=== PATIENT | male | born 1995 | race Caucasian/White ===

== ENCOUNTER → 2017-10-05 | Outpatient (CLI) | payer OTHER ==
[~2017-10-05] MED LIST: CYCL10 PO; IBUP800 PO
[2017-10-05 13:42] LABS: BASOPHILS ABSOLUTE AUTO 0.04 K/mm3 (0.00-0.23); BASOPHILS PERCENT AUTO 1 % (0-2); EOSINOPHILS ABSOLUTE AUTO 0.05 K/mm3 (0.00-0.68); EOSINOPHILS PERCENT AUTO 1 % (0-6); Hematocrit 45.1 % (37.0-53.0); Hemoglobin 16.4 g/dL (13.5-17.5); IMMATURE GRAN ABSOLUTE AUTO 0.04 K/mm3 (0.00-0.10); IMMATURE GRAN PERCENT AUTO 1 % (0-1); LYMPHOCYTES ABSOLUTE AUTO 1.95 K/mm3 (0.84-5.20); LYMPHOCYTES PERCENT AUTO 25 % (21-46); MONOCYTES ABSOLUTE AUTO 0.54 K/mm3 (0.16-1.47); MONOCYTES PERCENT AUTO 7 % (4-13); Mean Corpuscular HGB 33.1 pg (26.0-34.0); Mean Corpuscular HGB Conc 36.4 g/dL (31.5-36.5); Mean Corpuscular Volume 91 fL (80-100); Mean Platelet Volume 8.9 fL (9.1-12.4); NEUTROPHILS ABSOLUTE AUTO 5.18 K/mm3 (1.96-9.15); NEUTROPHILS PERCENT AUTO 67 % (41-73); Platelet Count 209 K/mm3 (150-400); RDW Coefficient Variation 12.7 % (11.7-14.2); RDW Standard Deviation 42.5 fL (35.1-46.3); Red Blood Cell Count 4.95 M/mm3 (4.30-5.90)
[2017-10-05 13:59] LABS: Alanine Aminotransfer (ALT/SGP 69 U/L (12-78); Albumin, Blood 4.7 g/dL (3.4-5.0); Albumin/Globulin Ratio 1.2 (0.8-1.8); Alk Phos 76 U/L (40-126); Anion Gap 13 mmol/L (6-16); Aspartate Aminotrans (AST/SGOT 43 U/L (12-37); Bilirubin, Total 0.6 mg/dL (0.1-1.0); Blood Urea Nitrogen 7 mg/dL (8-24); CO2, Blood 26 mmol/L (21-32); Calcium, Blood 9.8 mg/dL (8.5-10.1); Chloride, Blood 97 mmol/L (98-108); Creatinine, Blood 1.16 mg/dL (0.60-1.20); Globulin, Blood 3.9 g/dL (2.2-4.0); Glomerular Filtration Rate >60 (60-); Glucose, Blood 104 mg/dL (70-99); Potassium, Blood 4.4 mmol/L (3.5-5.5); Sodium, Blood 136 mmol/L (136-145); Total Protein, Blood 8.6 g/dL (6.4-8.2); Troponin I <0.017 ng/mL (0.000-0.040)
== END | disposition home or self-care (01) ==
LOC: LAB EV 13:38
PROVIDERS: Physician Assistant
DX: R07.9 Chest pain, unspecified (principal)
CPT/HCPCS: 80053; 83690; 84484; 85025

== ENCOUNTER → 2018-01-26 | Outpatient (CLI) | payer OTHER ==
[2018-01-26 10:46] LABS: BASOPHILS ABSOLUTE AUTO 0.05 K/mm3 (0.00-0.23); BASOPHILS PERCENT AUTO 1 % (0-2); EOSINOPHILS PERCENT AUTO 1 % (0-6); Hematocrit 46.9 % (37.0-53.0); Hemoglobin 16.8 g/dL (13.5-17.5); IMMATURE GRAN ABSOLUTE AUTO 0.02 K/mm3 (0.00-0.10); IMMATURE GRAN PERCENT AUTO 0 % (0-1); LYMPHOCYTES ABSOLUTE AUTO 1.69 K/mm3 (0.84-5.20); LYMPHOCYTES PERCENT AUTO 24 % (21-46); MONOCYTES ABSOLUTE AUTO 0.52 K/mm3 (0.16-1.47); MONOCYTES PERCENT AUTO 8 % (4-13); Mean Corpuscular HGB 33.9 pg (26.0-34.0); Mean Corpuscular HGB Conc 35.8 g/dL (31.5-36.5); Mean Corpuscular Volume 95 fL (80-100); Mean Platelet Volume 9.1 fL (9.1-12.4); NEUTROPHILS ABSOLUTE AUTO 4.55 K/mm3 (1.96-9.15); NEUTROPHILS PERCENT AUTO 66 % (41-73); Platelet Count 171 K/mm3 (150-400); RDW Coefficient Variation 12.5 % (11.7-14.2); RDW Standard Deviation 43.2 fL (35.1-46.3); Red Blood Cell Count 4.96 M/mm3 (4.30-5.90); White Blood Cell Count 6.93 K/mm3 (4.00-11.30)
[2018-01-26 11:01] LABS: Alanine Aminotransfer (ALT/SGP 76 U/L (12-78); Albumin, Blood 4.5 g/dL (3.4-5.0); Albumin/Globulin Ratio 1.3 (0.8-1.8); Alk Phos 66 U/L (40-126); Anion Gap 11 mmol/L (6-16); Aspartate Aminotrans (AST/SGOT 49 U/L (12-37); Bilirubin, Total 0.6 mg/dL (0.1-1.0); Blood Urea Nitrogen 7 mg/dL (8-24); Bun/Creatinine Ratio 6.7 (12.0-20.0); CO2, Blood 27 mmol/L (21-32); Calcium, Blood 9.4 mg/dL (8.5-10.1); Chloride, Blood 102 mmol/L (98-108); Creatinine, Blood 1.04 mg/dL (0.60-1.20); Globulin, Blood 3.6 g/dL (2.2-4.0); Glomerular Filtration Rate >60 (60-); Glucose, Blood 97 mg/dL (70-99); Potassium, Blood 4.6 mmol/L (3.5-5.5); Sodium, Blood 140 mmol/L (136-145); Total Protein, Blood 8.1 g/dL (6.4-8.2)
== END ==
LOC: LAB SHORT 10:40 → LAB EV 10:40
PROVIDERS: Family Medicine
DX: R10.13 Epigastric pain (principal)
CPT/HCPCS: 80053; 83690; 85025

== ENCOUNTER → 2018-01-29 | Outpatient (CLI) | payer OTHER | END | disposition home or self-care (01) | LOC: LAB EV 08:01 | DX: R10.13 Epigastric pain (principal) | CPT/HCPCS: 87338 ==

== ENCOUNTER 2022-08-10 12:35 | Emergency (ER) | payer OTHER ==
[~2022-08-10] VITALS: Ht 180.3 cm; Wt 76.2 kg
[~2022-08-10 12:35] MED LIST changes: +NAPR500 PO
[2022-08-10 13:13] LABS: BASOPHILS ABSOLUTE AUTO 0.05 K/mm3 (0.00-0.23); BASOPHILS PERCENT AUTO 1 % (0-2); EOSINOPHILS ABSOLUTE AUTO 0.09 K/mm3 (0.00-0.68); EOSINOPHILS PERCENT AUTO 2 % (0-6); Hematocrit 42.1 % (37.0-53.0); IMMATURE GRAN ABSOLUTE AUTO 0.01 K/mm3 (0.00-0.10); IMMATURE GRAN PERCENT AUTO 0 % (0-1); LYMPHOCYTES ABSOLUTE AUTO 1.61 K/mm3 (0.84-5.20); LYMPHOCYTES PERCENT AUTO 31 % (21-46); MONOCYTES ABSOLUTE AUTO 0.43 K/mm3 (0.16-1.47); MONOCYTES PERCENT AUTO 8 % (4-13); Mean Corpuscular HGB 33.1 pg (26.0-34.0); Mean Corpuscular HGB Conc 35.6 g/dL (31.5-36.5); Mean Corpuscular Volume 93 fL (80-100); Mean Platelet Volume 8.9 fL (9.1-12.4); NEUTROPHILS ABSOLUTE AUTO 2.94 K/mm3 (1.96-9.15); NEUTROPHILS PERCENT AUTO 57 % (41-73); Platelet Count 139 K/mm3 (150-400); RDW Coefficient Variation 13.3 % (11.7-14.2); RDW Standard Deviation 45.7 fL (35.1-46.3); Red Blood Cell Count 4.53 M/mm3 (4.30-5.90); White Blood Cell Count 5.13 K/mm3 (4.00-11.30)
[2022-08-10 13:25] LABS: Albumin/Globulin Ratio 1.1 (0.8-1.8); Bilirubin, Total 0.5 mg/dL (0.1-1.0); Bun/Creatinine Ratio 7.5 (12.0-20.0); Calcium, Blood 8.8 mg/dL (8.5-10.1); Creatinine, Blood 0.8 mg/dL (0.60-1.20); Globulin, Blood 3.5 g/dL (2.2-4.0); Potassium, Blood 4.2 mmol/L (3.5-5.5); Total Protein, Blood 7.5 g/dL (6.4-8.2)
== END 2022-08-10 16:09 | disposition home or self-care (01) ==
LOC: ER 12:35
PROVIDERS: Emergency Medicine
DX: R07.9 Chest pain, unspecified (principal); F41.9 Anxiety disorder, unspecified; F17.210 Nicotine dependence, cigarettes, uncomplicated
CPT/HCPCS: 36415; 71045; 80053; 84484; 85025; 93005; 93010; A9270

== ENCOUNTER 2022-11-26 04:55 | Inpatient (IN) | payer OTHER ==
[~2022-11-26] VITALS: Ht 180.3 cm; Wt 73.7 kg
[2022-11-26 06:50] LABS: BASOPHILS ABSOLUTE AUTO 0.06 K/mm3 (0.00-0.23); BASOPHILS PERCENT AUTO 1 % (0-2); EOSINOPHILS ABSOLUTE AUTO 0.01 K/mm3 (0.00-0.68); EOSINOPHILS PERCENT AUTO 0 % (0-6); IMMATURE GRAN ABSOLUTE AUTO 0.05 K/mm3 (0.00-0.10); IMMATURE GRAN PERCENT AUTO 0 % (0-1); LYMPHOCYTES ABSOLUTE AUTO 1.58 K/mm3 (0.84-5.20); LYMPHOCYTES PERCENT AUTO 13 % (21-46); MONOCYTES ABSOLUTE AUTO 0.71 K/mm3 (0.16-1.47); MONOCYTES PERCENT AUTO 6 % (4-13); Mean Corpuscular Volume 95 fL (80-100); NEUTROPHILS ABSOLUTE AUTO 10.16 K/mm3 (1.96-9.15); NEUTROPHILS PERCENT AUTO 81 % (41-73); NRBC ABSOLUTE 0.02 K/mm3 (0.00-0.02); NRBC Auto 0.2 /100 WBC (0.0-0.2); RDW Coefficient Variation 16.5 % (11.7-14.2); RDW Standard Deviation 49.4 fL (35.1-46.3); White Blood Cell Count 12.57 K/mm3 (4.00-11.30)
[2022-11-26 07:04] LABS: Hemoglobin 11.5 g/dL (13.5-17.5)
[2022-11-26 07:05] LABS: Mean Corpuscular HGB 32.2 pg (26.0-34.0); Mean Corpuscular HGB Conc 32.6 g/dL (31.5-36.5)
[2022-11-26 08:42] VITALS: BP 106/74
[2022-11-26 09:03] LABS: Albumin, Blood 2.5 g/dL (3.4-5.0); Albumin/Globulin Ratio 0.7 (0.8-1.8); Bilirubin, Total 2.8 mg/dL (0.1-1.0); Bun/Creatinine Ratio 16.2 (12.0-20.0); Calcium, Blood 7.7 mg/dL (8.5-10.1); Creatinine, Blood 0.62 mg/dL (0.60-1.20); Globulin, Blood 3.7 g/dL (2.2-4.0); Potassium, Blood 6.7 mmol/L (3.5-5.5); Total Protein, Blood 6.2 g/dL (6.4-8.2)
[2022-11-26 10:06] LABS: U Amphetamine Screen Not Detected; U Barbituate Screen Not Detected; U Benzodiazapine Screen Not Detected; U Buprenorphine Screen Not Detected; U Cannabinoids Screen Not Detected; U Cocaine Screen Not Detected; U Methadone Screen Not Detected; U Methamphetamine Screen Not Detected; U Opiates Screen Not Detected; U Oxycodone Screen Not Detected; U Phencyclidine Screen Not Detected; U Propoxyphene Screen Not Detected
[2022-11-26 10:15] LABS: Bun/Creatinine Ratio 16.1 (12.0-20.0); Creatinine, Blood 0.62 mg/dL (0.60-1.20); Potassium, Blood 5.1 mmol/L (3.5-5.5)
[2022-11-26 10:17] LABS: Calcium, Blood 5.9 mg/dL (8.5-10.1)
[2022-11-26 12:56] LABS: Adenovirus Not Detected (NOT DETECT); Coronavirus 229E Not Detected (NOT DETECT); Coronavirus HKU1 Not Detected (NOT DETECT); Coronavirus NL63 Not Detected (NOT DETECT); Coronavirus OC43 Not Detected (NOT DETECT); Human Metapneumovirus Not Detected (NOT DETECT); Human Rhinovirus/Enterovirus Detected (NOT DETECT); Influenza A/2009-H1 Not Detected (NOT DETECT); Influenza A/H1 Not Detected (NOT DETECT); Influenza A/H3 Not Detected (NOT DETECT); SARS-Cov-2 (COVID-19), BioFire Not Detected (NOT DETECT)
[2022-11-26 12:57] LABS: Bordetella pertussis Not Detected (NOT DETECT); Chlamydophila pneumoniae Not Detected (NOT DETECT); Influenza B Not Detected (NOT DETECT); Mycoplasma pneumoniae Not Detected (NOT DETECT); Parainfluenza Virus 1 Not Detected (NOT DETECT); Parainfluenza Virus 2 Not Detected (NOT DETECT); Parainfluenza Virus 3 Not Detected (NOT DETECT); Parainfluenza Virus 4 Not Detected (NOT DETECT); Respiratory Syncytial Virus Not Detected (NOT DETECT)
[2022-11-26 14:53] LABS: Bun/Creatinine Ratio 11.9 (12.0-20.0); Creatinine, Blood 0.76 mg/dL (0.60-1.20); Potassium, Blood 4.4 mmol/L (3.5-5.5)
[2022-11-26 14:57] LABS: Calcium, Blood 8.4 mg/dL (8.5-10.1)
[2022-11-26 17:10] VITALS: BP 129/81
--- NOTE | 2022-11-26 18:20 | NUR ---
NEW ADMIT Patient admitted for LLL pneumonia, occasional productive coguh, bloody sputum, sputum culture sent to lab. Patient reports severe sharp pain left side, radiates to back when coughing. Toradol IV given for pain. IV NS bolus & continous fluids ordered. Calcium critically low, IV Ca Gluconate & thiamine administred. Started IV ABX today. Patient reports drinking "tall boys" beer & shots of fireball whiskey daily. He stated he possibly could detox, but doesn't think so because he hasn't been drinking as much lately. CIWA scored at 0. MD aware. Vitals stable, afebrile. Will continue plan of care.
[2022-11-26 20:02] VITALS: BP 133/83
[2022-11-27 04:47] VITALS: BP 128/83
[2022-11-27 05:05] LABS: BASOPHILS ABSOLUTE AUTO 0.04 K/mm3 (0.00-0.23); BASOPHILS PERCENT AUTO 1 % (0-2); EOSINOPHILS ABSOLUTE AUTO 0.08 K/mm3 (0.00-0.68); EOSINOPHILS PERCENT AUTO 1 % (0-6); Hematocrit 32.6 % (37.0-53.0); Hemoglobin 11.2 g/dL (13.5-17.5); IMMATURE GRAN ABSOLUTE AUTO 0.03 K/mm3 (0.00-0.10); IMMATURE GRAN PERCENT AUTO 0 % (0-1); LYMPHOCYTES ABSOLUTE AUTO 1.67 K/mm3 (0.84-5.20); LYMPHOCYTES PERCENT AUTO 25 % (21-46); MONOCYTES ABSOLUTE AUTO 0.32 K/mm3 (0.16-1.47); MONOCYTES PERCENT AUTO 5 % (4-13); Mean Corpuscular HGB 34.5 pg (26.0-34.0); Mean Corpuscular HGB Conc 34.4 g/dL (31.5-36.5); Mean Platelet Volume 11.7 fL (9.1-12.4); NEUTROPHILS PERCENT AUTO 68 % (41-73); RDW Coefficient Variation 13.9 % (11.7-14.2); Red Blood Cell Count 3.25 M/mm3 (4.30-5.90); White Blood Cell Count 6.74 K/mm3 (4.00-11.30)
[2022-11-27 05:19] LABS: Mean Corpuscular Volume 100 fL (80-100)
[2022-11-27 05:23] LABS: Platelet Count 44 K/mm3 (150-400)
--- NOTE | 2022-11-27 05:43 | NUR ---
SHIFT SUMMARY; NO ACUTE CHANGES OVERNIGHT. THE PT IS AXO X4 AND INDEPENDENT IN THE ROOM. THE PT HAS BEEN RESTING IN BED T/O THE NIGHT. THE PT REPORTED SOME RIB PAIN LAST NIGHT R/T COUGHING BUT HAS DENIED THE NEED FOR PAIN MEDICATION. THE PTS CIWA SCORES WERE 1,2,3- THE ONLY SOCRING FACTOR IS A TREMOR. THE PT DENIES ANY SOB, CHEST PAIN/PRESSURE OR N/V. CURRENTLY THE PT IS RESTING IN BED WITH THE BED IN THE LOWEST POSITION AND THE CALL LIGHT AT BEDSIDE.
[2022-11-27 05:52] LABS: Albumin, Blood 2.2 g/dL (3.4-5.0); Albumin/Globulin Ratio 0.8 (0.8-1.8); Bilirubin, Total 3.3 mg/dL (0.1-1.0); Bun/Creatinine Ratio 7.7 (12.0-20.0); Calcium, Blood 8.1 mg/dL (8.5-10.1); Creatinine, Blood 0.91 mg/dL (0.60-1.20); Globulin, Blood 2.8 g/dL (2.2-4.0); Potassium, Blood 4.1 mmol/L (3.5-5.5)
[2022-11-27 07:24] VITALS: BP 130/91
--- NOTE | 2022-11-27 16:31 | NUR ---
SHIFT SUMMARY PT IS ALERT AND ORIENTED X4. INDEPENDENT IN THE ROOM. PT BREATING SHALLOW DUE TO PAIN WHEN INHAILING. PAIN MEDICATION HAS BEEN REFUSED. EDUCATION PROVIDED ON IMPORTANCE OF TAKING DEEP BREATHS TO HELP KEEP AVEOLI OPEN. AND SOMETIMES PAIN MEDICATIONS CAN ALLOW FOR A DEEPER BREATH. NO ACUTE CHANGES THIS SHIFT. R/A.
[2022-11-27 20:28] VITALS: BP 138/97
[2022-11-28 04:28] VITALS: BP 142/98
[2022-11-28 04:55] LABS: BASOPHILS ABSOLUTE AUTO 0.04 K/mm3 (0.00-0.23); BASOPHILS PERCENT AUTO 1 % (0-2); EOSINOPHILS ABSOLUTE AUTO 0.08 K/mm3 (0.00-0.68); EOSINOPHILS PERCENT AUTO 2 % (0-6); Hematocrit 34.9 % (37.0-53.0); Hemoglobin 11.6 g/dL (13.5-17.5); IMMATURE GRAN ABSOLUTE AUTO 0.04 K/mm3 (0.00-0.10); IMMATURE GRAN PERCENT AUTO 1 % (0-1); LYMPHOCYTES ABSOLUTE AUTO 1.75 K/mm3 (0.84-5.20); LYMPHOCYTES PERCENT AUTO 37 % (21-46); MONOCYTES ABSOLUTE AUTO 0.25 K/mm3 (0.16-1.47); MONOCYTES PERCENT AUTO 5 % (4-13); Mean Corpuscular HGB 33.3 pg (26.0-34.0); Mean Corpuscular HGB Conc 33.2 g/dL (31.5-36.5); Mean Corpuscular Volume 100 fL (80-100); NEUTROPHILS ABSOLUTE AUTO 2.52 K/mm3 (1.96-9.15); NEUTROPHILS PERCENT AUTO 54 % (41-73); Platelet Count 52 K/mm3 (150-400); RDW Coefficient Variation 14.2 % (11.7-14.2); RDW Standard Deviation 51.8 fL (35.1-46.3); Red Blood Cell Count 3.48 M/mm3 (4.30-5.90); White Blood Cell Count 4.68 K/mm3 (4.00-11.30)
[2022-11-28 05:11] LABS: Albumin, Blood 2.4 g/dL (3.4-5.0); Albumin/Globulin Ratio 0.7 (0.8-1.8); Bilirubin, Total 3.5 mg/dL (0.1-1.0); Bun/Creatinine Ratio 8.9 (12.0-20.0); Creatinine, Blood 0.79 mg/dL (0.60-1.20); Globulin, Blood 3.3 g/dL (2.2-4.0); Potassium, Blood 3.8 mmol/L (3.5-5.5); Total Protein, Blood 5.7 g/dL (6.4-8.2)
--- NOTE | 2022-11-28 06:23 | NUR ---
SUMMARY: NO ACUTE EVENTS OVERNIGHT. CIWA ASSESSMENT 1. MILD TREMOR. PATIENT AOX4. VSS. AMBULATES INDEPENDENTLY IN ROOM. PATIENT ON ROOM AIR. FLUIDS RUNNING AT 125. IV REPLACED THIS AM. CALL LIGHT IN REACH.
[2022-11-28 07:57] VITALS: BP 124/100
[2022-11-28] MEDS ORDERED: AMOCLA875 PO (10:13)
[2022-11-28] MEDS ORDERED: VISBIOME 112.51 EACH PO (10:14)
--- NOTE | 2022-11-28 11:03 | NUR ---
DISCHARGE. PT DISCHARGED HOME. DISCUSSED DISCHARGE INSTRUCTIONS WITH PT. ALERT AND ORIENTED X4 INDEPENDENT
== END 2022-11-28 10:41 | disposition home or self-care (01) | DRG 871 ==
LOC: ER 04:55 → MEDS 06:21 → ENPENDDIS 11-28 09:19 → MEDS 11-28 10:41
PROVIDERS: Emergency Medicine; Family Medicine; ADMIT Internal Medicine
DX: A41.9 Sepsis, unspecified organism (principal); J18.9 Pneumonia, unspecified organism; E87.1 Hypo-osmolality and hyponatremia; E87.20 Acidosis, unspecified; R04.2 Hemoptysis; R65.20 Severe sepsis without septic shock; E83.51 Hypocalcemia; R94.5 Abnormal results of liver function studies; F10.10 Alcohol abuse, uncomplicated; D69.6 Thrombocytopenia, unspecified; K70.9 Alcoholic liver disease, unspecified; E87.5 Hyperkalemia; E87.6 Hypokalemia; D63.8 Anemia in other chronic diseases classified elsewhere; F17.210 Nicotine dependence, cigarettes, uncomplicated; Z20.822 Contact with and (suspected) exposure to COVID-19; B97.89 Other viral agents as the cause of diseases classified elsewhere; B97.10 Unspecified enterovirus as the cause of diseases classified elsewhere; Z71.41 Alcohol abuse counseling and surveillance of alcoholic
CPT/HCPCS: 0202U; 36415; 71046; 80048; 80053; 83605; 83880; 85025; 87040; 87070; 87186; 87205; 94760; 96365; 96375; 99285-25; A9270; G0480; J0456; J0612; J0696; J1885; J3411; J7030; J7050

== ENCOUNTER 2023-02-21 11:17 | Inpatient (IN) | payer OTHER ==
[~2023-02-21] VITALS: Ht 180.3 cm; Wt 76.7 kg
[~2023-02-21 11:17] MED LIST changes: +AMOCLA875 PO; +VISBIOME 112.51 EACH PO
[2023-02-21 12:28] LABS: BASOPHILS ABSOLUTE AUTO 0.04 K/mm3 (0.00-0.23); BASOPHILS PERCENT AUTO 1 % (0-2); EOSINOPHILS PERCENT AUTO 0 % (0-6); Hematocrit 25.7 % (37.0-53.0); Hemoglobin 9.1 g/dL (13.5-17.5); IMMATURE GRAN ABSOLUTE AUTO 0.04 K/mm3 (0.00-0.10); IMMATURE GRAN PERCENT AUTO 1 % (0-1); LYMPHOCYTES ABSOLUTE AUTO 0.76 K/mm3 (0.84-5.20); LYMPHOCYTES PERCENT AUTO 12 % (21-46); MONOCYTES ABSOLUTE AUTO 0.34 K/mm3 (0.16-1.47); MONOCYTES PERCENT AUTO 5 % (4-13); Mean Corpuscular HGB 37.3 pg (26.0-34.0); Mean Corpuscular HGB Conc 35.4 g/dL (31.5-36.5); Mean Corpuscular Volume 105 fL (80-100); Mean Platelet Volume 9.7 fL (9.1-12.4); NEUTROPHILS ABSOLUTE AUTO 5.16 K/mm3 (1.96-9.15); NEUTROPHILS PERCENT AUTO 81 % (41-73); NRBC ABSOLUTE 0.02 K/mm3 (0.00-0.02); NRBC Auto 0.3 /100 WBC (0.0-0.2); Platelet Count 58 K/mm3 (150-400); RDW Coefficient Variation 19.7 % (11.7-14.2); RDW Standard Deviation 73.5 fL (35.1-46.3); Red Blood Cell Count 2.44 M/mm3 (4.30-5.90); White Blood Cell Count 6.34 K/mm3 (4.00-11.30)
[2023-02-21 12:41] LABS: International Normalized Ratio 1.12; Prothrombin Time Results 11.7 Sec (9.7-11.5)
[2023-02-21 12:49] LABS: Albumin, Blood 2.4 g/dL (3.4-5.0); Albumin/Globulin Ratio 0.7 (0.8-1.8); Bilirubin, Total 1.6 mg/dL (0.1-1.0); Bun/Creatinine Ratio 6.4 (12.0-20.0); Calcium, Blood 7.9 mg/dL (8.5-10.1); Creatinine, Blood 0.62 mg/dL (0.60-1.20); Globulin, Blood 3.3 g/dL (2.2-4.0); Potassium, Blood 3.5 mmol/L (3.5-5.5); Total Protein, Blood 5.7 g/dL (6.4-8.2)
[2023-02-21 16:02] LABS: Percent Saturation 86.7 % (20.0-50.0)
[2023-02-21 16:29] VITALS: BP 137/94
--- NOTE | 2023-02-21 18:32 | NUR ---
DAY SHIFT SUMMARY/NEW ADMIT PT TO FLOOR APROX 1630. NEW ADMIT FOR ETOH. FAMILY AT BEDSIDE. PT SKIN COLOR DUSKY, VISIBLE TREMORS, UNABLE TO ANSWER QUESTIONS ABOUT DAY/DATE. NUMBNESS AND TINGLING IN THE FEET, AND AGIATION. CIWA SCORE 10; MED PER EMAR. ABD DISTENDED SEVERE WITH PAIN. PT NOT TOLERATING SCDS. PT IS AN EVERY DAY SMOKER. EDUCATED PT AND FAMILY ON IGNITION RISKS. IF PRESENT, NEED TO BE LOCKED UP. PT AND FAMILY DENIED POSSESSION OF IGNITION RISK ITEMS. PT TO HAVE PARACENTESIS AND EGD TOMORROW. PT ON CLEAR LIQUIDS.
[2023-02-21 20:03] VITALS: BP 134/97
[2023-02-22] VITALS (20 sets, daily range): BP systolic 117–138; BP diastolic 85–100
--- NOTE | 2023-02-22 00:41 | NUR ---
PT FALL AT APPROX 2420 PT UP TO USE RESTROOM, HE HAD AN UNWITNESSED FALL HITTING HIS FOREHEAD CAUSING A FOREHEAD LUMP AND BLOODY NOSE. ASSISTED PT BACK TO BED, TOOK VITALS WHICH WERE WNL'S, CHECKED PUPILS, RIGHT PUPIL MORE SLUGGISH THAN THE LEFT, PUPIL SIZE WNL'S. PLACED AN ICE PK ON FOREHEAD, CLEANED PT UP. NOSE STOPPED BLEEDING. PLACED CALL TO MD, ORDERS RECEIVED FOR A HEAD CT. PT IS STATING HE WANTS TO LEAVE AMA. WANTS TO SMOKE, OFFERED TO ASK MD FOR A NICOTINE PATCH, PT REFUSES, STATING HE WON'T WEAR IT. 2455: PT TO CT VIA GURNEY. 0105: PT RETURNED FROM CT VIA GURNEY AND PLACED IN BED. PT THEN UP AGAIN IN THE HALLWAY ATTEMPTING TO LEAVE. PT REQUESTING USE OF PHONE TO CALL SOMEONE TO COME GET HIM, PT RECEIVED NO RESPONSE FROM PEOPLE HE CALLED. ATTEMPTING TO ASSIST PT BACK TO BED WHEN HE PUSHED AWAY STAFF HE BEGAN TO STUMBLE AND CRUMBLED TO THE FLOOR. PT THEN MAX ASSISTED BACK TO BED WITH STAFF x 3 . THIS RN REQUESTED ASSIST WITH PLACING A CALL TO MD AND FOR SECURITY FOR BACK UP. PER MD ORDER PT TO BE TRANSFERRED TO ICU ON A 2 MD HOLD & PT TO BE PLACED IN 4 POINT TOUGH CUFF RESTRAINTS, BILAT ANKLE & WRIST. SECURITY PERSONNEL REMAINED AT BEDSIDE THROUGHOUT. 1335: GAVE REPORT TO WOOD CREW SUPERVISOR. 1345: WITH ASSIST FROM SECURITY PT TRANSFERRED IN BED TO ICU 6.
[2023-02-22 03:52] LABS: Hematocrit 22.2 % (37.0-53.0); Hemoglobin 7.7 g/dL (13.5-17.5); Mean Corpuscular HGB 37.7 pg (26.0-34.0); Mean Corpuscular HGB Conc 34.7 g/dL (31.5-36.5); Mean Corpuscular Volume 109 fL (80-100); Mean Platelet Volume 10.5 fL (9.1-12.4); RDW Coefficient Variation 19.4 % (11.7-14.2); RDW Standard Deviation 74.8 fL (35.1-46.3); Red Blood Cell Count 2.04 M/mm3 (4.30-5.90); White Blood Cell Count 4.85 K/mm3 (4.00-11.30)
[2023-02-22 03:56] LABS: Platelet Count 45 K/mm3 (150-400)
[2023-02-22 04:24] LABS: Albumin/Globulin Ratio 0.7 (0.8-1.8); Bilirubin, Total 1.9 mg/dL (0.1-1.0); Bun/Creatinine Ratio 5.7 (12.0-20.0); Calcium, Blood 7.4 mg/dL (8.5-10.1); Creatinine, Blood 0.7 mg/dL (0.60-1.20); Potassium, Blood 3.5 mmol/L (3.5-5.5)
--- NOTE | 2023-02-22 06:30 | NUR ---
PATIENT TRANSFERRED FROM FLOOR. AGITATED, THREATENTING STAFF, REFUSING TO TAKE PART IN EXAM, SCREAMING RACIAL SLURS. AOX2, ABLE TO FOLLOW COMMANDS BUT OFTEN CHOOSES NOT TO. VISUAL HALLUCINATIONS. CIWA 15. PRECEDEX STARTED AND INITIALLY REQUIRED RESTRAINTS X4. ABLE TO DISCONTINUE BLE RESTRAINTS AND WEAN DOWN PRECEDEX. SR/ST. ROOM AIR. NO BOWEL MOVEMENTS AT THIS TIME. PATIENT IS ON 2 MD HOLD. HOURLY ROUNDING COMPLETED FOR IGNITION SOURCES.
--- NOTE | 2023-02-22 07:00 | NUR ---
ASSUME CARE: I have assumed care of this patient.
--- NOTE | 2023-02-22 08:27 | NUR ---
UPDATE: While provider at bedside, patient woke up for a moment and stated, "I don't mean to hurt anyone, but..." Pt then abruptly strained against bilateral wrist restraints forcefully in at attempt to self remove them.
--- NOTE | 2023-02-22 12:25 | NUR ---
HOLD: This RN spoke with [employer] special investigator who came to interview patient regarding legal hold. She recommended that pt be released from mental illness emergency hold and placed on an alcohol and drug hold. This was discussed with Dr Williamson who agrees.
--- NOTE | 2023-02-22 15:12 | NUR ---
RESTRAINTS: Discussed possible removal of restraints with patient. While discussing safe behaviors patient became agitated and starting pulling against restraints. RN informed patient that she does not feel safe removing restraints at this time, but will reassess again in two hours.
[2023-02-22 15:28] LABS: Automated BF WBC Count 0.044 K/mm3 (0-999)
[2023-02-22 15:31] LABS: Body Fluid WBC Count 44 /mm3 (0-999)
[2023-02-22 15:44] LABS: Albumin, Body Fluid 0.6 g/dL; Lactate Dehydrogenase, Body Fl 116 U/L; Protein, Body Fluid 1.2 g/dL
[2023-02-22 15:51] LABS: Color, Body Fluid Yellow (None-Yellow); RBC Count, Body Fluid 138 /mm3 (0-0)
[2023-02-22 16:28] LABS: Total Cell Count, Body Fluid 100
--- NOTE | 2023-02-22 17:39 | NUR ---
SHIFT SUMMARY: Limited cooperation with care today. Pt states, "no" when asked direct questions. He declined food today; requested water once. RN was able to assess for orientation after some coaxing. Straight cath preformed per protocol for retention. Peracentesis with 4L off this afternoon. Albumen given post paracentesis. Precedex at 0.2 mcg/kg/hr. Pt sleeping between care. Bilateral wrist TATs remain in place as pt occasionally attempts to muscle out of restraints and he will not participate create a plan for removal with RN.
--- NOTE | 2023-02-22 19:00 | NUR ---
FAMILY UPDATE: Pt's mother updated on pt status.
[2023-02-23] VITALS (16 sets, daily range): BP systolic 108–140; BP diastolic 66–97
[2023-02-23 03:56] LABS: Hematocrit 22.7 % (37.0-53.0); Mean Corpuscular HGB 37.7 pg (26.0-34.0); Mean Corpuscular HGB Conc 35.2 g/dL (31.5-36.5); Mean Corpuscular Volume 107 fL (80-100); Mean Platelet Volume 10.7 fL (9.1-12.4); Platelet Count 54 K/mm3 (150-400); RDW Coefficient Variation 18.3 % (11.7-14.2); Red Blood Cell Count 2.12 M/mm3 (4.30-5.90); White Blood Cell Count 5.68 K/mm3 (4.00-11.30)
[2023-02-23 04:16] LABS: Bun/Creatinine Ratio 6.6 (12.0-20.0); Calcium, Blood 7.7 mg/dL (8.5-10.1); Creatinine, Blood 0.76 mg/dL (0.60-1.20); Potassium, Blood 3.7 mmol/L (3.5-5.5)
--- NOTE | 2023-02-23 06:14 | NUR ---
PATIENT AOX3. ABLE TO FOLLOW COMMANDS AND MOVE ALL EXTREMITIES. CIWA SCORE OF 5. PT STILL DISPLAYING AGGRESSIVE BEHAVIOR AND ATTEMPTING TO REMOVE IV'S SO HE REMAINS IN BILATERAL WRIST RESTRAITNS. SR WITH STABLE BP. ROOM AIR. PRECEDEX GTT STOPPED. HOURLY ROUNDING COMPLETED ON IGNITION SOURCES.
--- NOTE | 2023-02-23 07:00 | NUR ---
ASSUME CARE: I have assumed care of this patient. 1:1 at bedsite; pt cursing at sitter.
--- NOTE | 2023-02-23 08:30 | NUR ---
PROVIDER UPDATE: Plan of care discussed with Dr Williamson. This RN address concern that pt may no longer be experiencing symptoms of alcohol withdrawal and his resistance to cooperate with staff may be behavioral. RN instructed to continue with current course of treatment.
--- NOTE | 2023-02-23 11:25 | NUR ---
RESTRAINTS: Safey plan discussed regarding restraint removal. RN explained to patient that he is on a hold and what that means. RN stressed that safety for patient and staff is first priority. Pt verbalized agreement to request assistance before getting out of bed and agreed to not remove lines/tubing. He denies any SI or HI. He denies hallucinations or feeling agitated. RN requested that pt tell staff when he is feeling anxious or agitated; he agrees.
--- NOTE | 2023-02-23 11:41 | NUR ---
FAMILY UPDATE: Spoke with patient mother and updated her. Will come visit patient this afternoon.
--- NOTE | 2023-02-23 14:44 | NUR ---
GI: Dr Yoder called and notified of pt status. Will come see pt tonight and plan for EGD tomorrow.
--- NOTE | 2023-02-23 15:00 | NUR ---
PATIENT UPDATE: Pt updated on current hold status. He was encouraged to continue with in hospital treatment. RN explained next steps of treatment and potential resources availiable to him. Pt cooperative with care and agrees to stay in the hospital at this time.
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
--- NOTE | 2023-02-23 19:11 | NUR ---
SHIFT SUMMARY: Patient cooperative with care this afternoon. He is A/O x 4 and ambulates to toilet with standby assist. He is calling for help appropriately. Ignition sources rounded on hourly.
[2023-02-24 00:09] LABS: HBSAG SCREEN Negative (Negative); HCV AB Non Reactive (Non Reactive)
[2023-02-24 00:21] LABS: U Amphetamine Screen Not Detected; U Barbituate Screen Not Detected; U Benzodiazapine Screen DETECTED; U Buprenorphine Screen Not Detected; U Cannabinoids Screen DETECTED; U Cocaine Screen Not Detected; U Methadone Screen Not Detected; U Methamphetamine Screen Not Detected; U Opiates Screen DETECTED; U Oxycodone Screen Not Detected; U Phencyclidine Screen Not Detected; U Propoxyphene Screen Not Detected
[2023-02-24 03:41] LABS: Hemoglobin 7.7 g/dL (13.5-17.5); Mean Corpuscular HGB 37.7 pg (26.0-34.0); Mean Corpuscular Volume 108 fL (80-100); Mean Platelet Volume 10.5 fL (9.1-12.4); NRBC ABSOLUTE 0.02 K/mm3 (0.00-0.02); NRBC Auto 0.3 /100 WBC (0.0-0.2); Platelet Count 78 K/mm3 (150-400); RDW Coefficient Variation 19.1 % (11.7-14.2); RDW Standard Deviation 72.5 fL (35.1-46.3); Red Blood Cell Count 2.04 M/mm3 (4.30-5.90); White Blood Cell Count 6.44 K/mm3 (4.00-11.30)
[2023-02-24 04:02] LABS: Bun/Creatinine Ratio 3.6 (12.0-20.0); Calcium, Blood 7.5 mg/dL (8.5-10.1); Creatinine, Blood 0.83 mg/dL (0.60-1.20); Potassium, Blood 3.2 mmol/L (3.5-5.5)
[2023-02-24 04:11] VITALS: BP 117/77
--- NOTE | 2023-02-24 05:32 | NUR ---
AOX4 WITH CIWA SCORE OF 0. ST 110-130 AND STABLE BP. ROOM AIR. CLEAR LIQUID DIET SINCE 0000. ONE BROWN BOWEL MOVEMENT OVERNIGHT, NO SIGNS OF BLEEDING. HOURLY ROUNDING FOR IGNITION SOURCES COMPLETED.
--- NOTE | 2023-02-24 07:00 | NUR ---
ASSUMPTION OF CARE PT IS ALERT AND ORIENTED. SOMEWHAT WITHDRAWN BUT ANSWERS QUESTIONS APPROPRIATELY AND PARTICIPATES IN CARE. CIWA 2. LUNGS ARE CLEAR THROUGHOUT, ON RA WITH SPO2 >97%. SINUS TACH ON MONITOR WITH RATE IN 100S-110S. SBP 130S. BOWEL TONES ACTIVE, ABDOMEN SOFT. PT DENIES GI UPSET. PT DENIES NEED TO VOID AT THIS TIME. PLAN FOR EGD TODAY. BED IN LOW POSITION, BED ALARM ON, CALL LIGHT AND TELEPHONE WITHIN REACH. SEE SHIFT ASSESSMENT.
[2023-02-24 07:16] VITALS: BP 134/90
--- NOTE | 2023-02-24 08:04 | NUR ---
NPO PT TRANISTIONED TO NPO AT 0800 IN ANTICIPATION FOR EGD TODAY.
--- NOTE | 2023-02-24 08:45 | NUR ---
WALLET PT ASKS FOR HIS WALLET. PT PROVIDED BELONGINGS BAG AND WALLET LOCATED. PT PLACED IT BY HIS PILLOW IN HIS BED.
[2023-02-24 11:44] VITALS: BP 133/90
[2023-02-24 15:22] VITALS: BP 136/88
--- NOTE | 2023-02-24 15:38 | NUR ---
AMA PT PRESSED CALL LIGHT AT 15:15. THIS RN GOES INTO ROOM, PT ASKS IF HE CAN BE DISCHARGED. EXPLAINED TO PT THAT HE CANNOT BE DISCHARGED AT THIS TIME DUE TO PENDING EGD. PT PROVIDED EDUCATION REGARDING BENEFITS OF EGD AND THAT HE WILL NOT BE DISCHARGED BUT CAN LEAVE AMA. PT BEGINS TO PULL TELEMETRY LEADS OFF AND ASKS "WILL I BE TACKLED IF I TRY TO LEAVE?". PT BEGINS TO REACH TOWARD IV IN L ARM. THIS RN ASKS PT TO NOT REMOVE IV AND THAT HE IS NO LONGER ON A MEDICAL HOLD. DESPITE EDUCATION REGARDING RISKS VS BENEFITS, PT REQUESTS TO LEAVE. PT AGREES TO FINAL SET OF VS TO BE TAKEN. IV REMOVED. PT PROVIDED AMA FORM. PT VERBALIZES THAT HE WILL FOLLOW UP WITH PCP AND GI. GIRLFRIENConor GRAHAM AT BEDSIDE DURING THIS CONVERSATION. PT PROVIDED WHEELCHAIR RIDE TO CAR WITH ALL BELONGINGS INCLUDING WALLET AT 15:30. PT INSTRUCTED TO RETURN TO HOSPITAL FOR ANY SYMPTOMS OR SIGNS OF BLEEDING. HOSPITALIST, DAY SURGERY TEAM AND NURSING TURRET LATHE MACHINIST NOTIFIED.
== END 2023-02-24 15:30 | disposition left against medical advice (07) | DRG 432 ==
LOC: ER 11:17 → MEDS 14:52 → ICUE 02-22 01:31
PROVIDERS: Emergency Medicine; Internal Medicine Gastroenterology; ADMIT Internal Medicine
PROC: 0W9G3ZZ Drainage of Peritoneal Cavity, Percutaneous Approach (ICD-10-PCS; principal; 2023-02-22)
DX: K70.31 Alcoholic cirrhosis of liver with ascites (principal); J96.01 Acute respiratory failure with hypoxia; F10.239 Alcohol dependence with withdrawal, unspecified; D64.9 Anemia, unspecified; D69.6 Thrombocytopenia, unspecified; Z53.29 Procedure and treatment not carried out because of patient's decision for other reasons; F17.210 Nicotine dependence, cigarettes, uncomplicated; Z87.01 Personal history of pneumonia (recurrent); Z71.41 Alcohol abuse counseling and surveillance of alcoholic; Z78.1 Physical restraint status; Y90.1 Blood alcohol level of 20-39 mg/100 ml
CPT/HCPCS: 36415; 49083; 51701; 70450; 74177; 80048; 80053; 82042; 82103; 82105; 82390; 82728; 82947; 83540; 83550; 83615; 83690; 83735; 84157; 85025; 85027; 85610; 85730; 86038; 86317; 86704; 86708; 86803; 87340; 89051; 96361; 96365; 96368; 96374-59; 96375; 96376; 99285-25; A9270; C9113; G0378; G0480; J0171; J1170; J2060; J2405; J3010; J3411; J7030; J7050; P9047; Q9967

== ENCOUNTER 2023-05-29 06:03 | Inpatient (IN) | payer OTHER ==
[~2023-05-29] VITALS: Ht 180.3 cm; Wt 86.0 kg
[2023-05-29 06:52] LABS: Albumin, Blood 1.9 g/dL (3.4-5.0); Albumin/Globulin Ratio 0.4 (0.8-1.8); Bilirubin, Direct 9.2 mg/dL (0.0-0.3); Bilirubin, Indirect 5.8 mg/dL (0.1-0.7); Bun/Creatinine Ratio 8.3 (12.0-20.0); Calcium, Blood 7.4 mg/dL (8.5-10.1); Creatinine, Blood 1.32 mg/dL (0.60-1.20); Globulin, Blood 4.7 g/dL (2.2-4.0); Magnesium, Blood 1.6 mg/dL (1.6-2.4); Potassium, Blood 3.7 mmol/L (3.5-5.5); Total Protein, Blood 6.6 g/dL (6.4-8.2)
[2023-05-29 08:35] LABS: Automated BF WBC Count 0.045 K/mm3 (0-999)
[2023-05-29 08:50] LABS: Protein, Body Fluid 0.6 g/dL
[2023-05-29 08:57] LABS: Body Fluid WBC Count 45 /mm3 (0-999)
[2023-05-29 09:44] LABS: BASOPHILS ABSOLUTE AUTO 0.04 K/mm3 (0.00-0.23); BASOPHILS PERCENT AUTO 0 % (0-2); EOSINOPHILS ABSOLUTE AUTO 0.04 K/mm3 (0.00-0.68); EOSINOPHILS PERCENT AUTO 0 % (0-6); Hematocrit 23.4 % (37.0-53.0); IMMATURE GRAN ABSOLUTE AUTO 0.23 K/mm3 (0.00-0.10); IMMATURE GRAN PERCENT AUTO 2 % (0-1); LYMPHOCYTES ABSOLUTE AUTO 1.75 K/mm3 (0.84-5.20); LYMPHOCYTES PERCENT AUTO 12 % (21-46); MONOCYTES ABSOLUTE AUTO 1.52 K/mm3 (0.16-1.47); MONOCYTES PERCENT AUTO 11 % (4-13); Mean Corpuscular Volume 113 fL (80-100); Mean Platelet Volume 10.2 fL (9.1-12.4); NEUTROPHILS ABSOLUTE AUTO 10.69 K/mm3 (1.96-9.15); NEUTROPHILS PERCENT AUTO 75 % (41-73); NRBC ABSOLUTE 0.03 K/mm3 (0.00-0.02); NRBC Auto 0.2 /100 WBC (0.0-0.2); Platelet Count 94 K/mm3 (150-400); RDW Coefficient Variation 19.1 % (11.7-14.2); Red Blood Cell Count 2.08 M/mm3 (4.30-5.90); White Blood Cell Count 14.27 K/mm3 (4.00-11.30)
[2023-05-29 10:09] LABS: RBC Count, Body Fluid 175 /mm3 (0-0)
[2023-05-29 10:18] LABS: Appearance, Body Fluid Clear (Clear); Color, Body Fluid Yellow (None-Yellow); Total Cell Count, Body Fluid 100
[2023-05-29 12:39] LABS: International Normalized Ratio 1.93; Prothrombin Time Results 19.5 Sec (9.7-11.5)
[2023-05-29 16:37] LABS: Source, Urine Foley catheter
[2023-05-29 16:39] LABS: Appearance, Urine Cloudy (Clear); Blood, Urine 4+ (Neg); Color, Urine Brown (P-Yellow); Glucose Qualitative, Urine 1+ (Neg); Ketones, Urine 1+ (Neg); Leukocyte Esterase, Urine 1+ (Neg); Nitrite, Urine Neg (Neg); Protein, Urine 3+ (Neg); Urobilinogen, Urine 4+ (Normal)
[2023-05-29 16:46] LABS: Bilirubin, Urine 3+ (Neg)
[2023-05-29 16:57] LABS: Calcium Oxalate Crystals Few /hpf
[2023-05-29 16:58] LABS: Amorphous Heavy (0-Heavy); Transitional Epithelial Cells Mod /hpf (0-Rare)
[2023-05-29 16:59] LABS: Bacteria Few /hpf; Squamous Epithelial Cells Few /hpf (Few)
[2023-05-29 18:38] VITALS: BP 130/75
--- NOTE | 2023-05-29 18:59 | NUR ---
PT ARRIVED TO UNIT AT APPROXIMATELY 1840. PT IS ALERT AND ORIENTED X 4, ABLE TO MAKE NEEDS KNOWN. PT REQUESTED ICE WATER AND ROOT BEER, BOTH AT HIS BEDSIDE NOW. PT HAS BLEVINS CATHETER THAT WAS PLACED IN THE ER, DARK COLORED URINE DRAINING WITH GRAVITY. PT HR SINUS TACH 116 PER TELE MONITOR, PT DENIES CHEST PAIN/PRESSURE. PT 0XYGEN SATURATION 98% ON RA, PT DID STATE SOME PAIN WHILE BREATHING, PT SAID HE HAS BEEN EXPERIENCING SOB FOR THE PAST COUPLE WEEKS, STATED HE FEELS LESS SOB SINCE THEY REMOVED 4.8 L OF ASCITES TODAY. PT IS RESTING IN BED, CALL LIGHT WITHIN REACH.
[2023-05-29 19:40] VITALS: BP 132/73
--- NOTE | 2023-05-29 20:58 | NUR ---
ASSUMPTION OF CARE/MD COMMUNICATION THIS RN ASSUMED CARE OF PATIENT AT 1900. PT A&O X4. ABLE TO MAKE NEEDS KNOWN. CIWA 5 AT THIS TIME. THIS RN REVIEWED MD DE LA TORRE'S H&P AND NOTED THAT THE MD WROTE THAT THE PATIENT WOULD BE ON A PROTONIX GTT FOR STRESS ULCER PROPHYLAXIS, HOWEVER, NO ORDER CAN BE FOUND FOR A PROTONIX GTT. THIS RN CALLED MD KINCAID REGARDING THIS, MD STATED THAT WE WOULD REASSESS IN THE MORNING D/T THE PATIENT NOT CURRENTLY HAVING ANY N/V OR DARK/TARRY/RED STOOLS. BED IN LOWEST POSITION AND CALL LIGHT WITHIN REACH.
[2023-05-29 23:50] VITALS: BP 102/56
[2023-05-30 03:21] VITALS: BP 101/64
--- NOTE | 2023-05-30 04:50 | NUR ---
SHIFT SUMMARY THIS RN ASSUMED CARE OF PATIENT AT 1900. PT A&O X4 THROUGHOUT THIS SHIFT. ONE EPISODE OF VOMITING DURING THIS SHIFT AFTER EATING BURGER THAT BROUGHT FOR HIS DINNER; MEDICATED PER EMAR. NO SIGNS THAT VOMIT WAS BLOODY OR COFFEE-GROUND IN APPEARANCE. NO DIARRHEA NOTED. MD KINCAID WITH ORDER TO KEEP BLEVINS CATHETER THAT WAS PLACED IN ED FOR ACUTE RETENTION. CIWA PROTOCOL IN PLACE. MEDICATED WITH LIBRIUM X1. ST ON MONITOR WITH HR 100-110'S. BP STABLE. DRESSING ON PARACENTESIS SITE ON RIGHT ABDOMEN C/D/I. BLEVINS CATHETER PATENT AND DRAINING TO GRAVITY WITH TEA/BROWN COLORED URINE NOTED; MINIMAL OUTPUT NOTED. BED IN LOWEST POSITION. BED ALARM FOR SAFETY. CALL LIGHT WITHIN REACH. THIS RN WILL REPORT TO ONCOMING DAYSHIFT RN.
[2023-05-30 05:16] LABS: Albumin, Blood 2.2 g/dL (3.4-5.0); Albumin/Globulin Ratio 0.6 (0.8-1.8); Bilirubin, Total 13.7 mg/dL (0.1-1.0); Bun/Creatinine Ratio 7.1 (12.0-20.0); Calcium, Blood 7.4 mg/dL (8.5-10.1); Creatinine, Blood 2.12 mg/dL (0.60-1.20); Globulin, Blood 3.5 g/dL (2.2-4.0); Potassium, Blood 3.1 mmol/L (3.5-5.5); Total Protein, Blood 5.7 g/dL (6.4-8.2)
[2023-05-30 07:20] VITALS: BP 114/71
--- NOTE | 2023-05-30 09:27 | NUR ---
PT A&OX4, ABLE TO MAKE NEEDS KNOWN. CIWA PROTOCOL, CIWA SCORE OF 6 THIS MORNING. PT IS ON RA AND MAINTAINING 02 SATURATION ABOVE 92%, PT REPORTED SOB FOR THE PAST TWO WEEKS, PT SAID SOB HAS MINIMIZED SINCE PARACENTESIS BUT STILL SOME DISCOMFORT. PT'S HR SINUS TACH 110'S, PT REPORTS MILD PAIN IN THE AREA FROM PARACENTESIS. PT HAS BEEN NAUSEOUS ALL MORNING AND HAS VOMITED TWICE, MEDICATED PER EMAR. BLEVINS CATHETER IN PLACE AND DRAINING TEA COLORED URINE WITH GRAVITY. ABDOMEN IS DISTENDED BUT PT REPORTS IT'S BETTER SINCE THE PARACENTESIS. BANDAGE OVER PARACENTESIS SITE ON R SIDE OF PTS ABDOMEN, SKIN IS JAUNDICE. IV IN L AC PATENT, FLUSHED AND SALINE LOCKED WHEN NOT RUNNING, CURRENTLY INFUSING PER EMAR. RESPIRATORY THERAPY IN WITH PT NOW, CALL LIGHT WITHIN REACH.
--- NOTE | 2023-05-30 09:39 | NUR ---
SPOKE WITH MD REGARDING VTE PROPHYLAXIS, HE SAID NO BC PT'S BLOOD IS ALREADY THIN DUE TO LIVER FAILURE.
[2023-05-30 11:00] VITALS: BP 108/71
[2023-05-30 11:36] LABS: Uric Acid, Blood 5.1 mg/dL (3.5-7.2)
[2023-05-30 11:39] LABS: Thyroid Stimulating Hormone 1.66 uIU/mL (0.360-4.800)
--- NOTE | 2023-05-30 12:01 | NUR ---
CIWA RE-CHECK IS 0, PT IS SLEEPING.
--- NOTE | 2023-05-30 12:46 | NUR ---
EARLIER TODAY DR. JOHNSON WAS IN TO SEE PT & ORDERED LABS, HE ASKED ME TO CALL HIM WITH THE RESULTS. WHEN I CALLED HIM WITH THE RESULTS HE ORDERED ALDACTONE 25MG Q DAY STARTING AT THAT TIME. I WENT AND GOT THE MEDICATION FROM THE XIS WITH THE OTHER MEDICATIONS HE ORDERED, AND WHEN I GOT INTO THE ROOM TO SCAN THE MEDICATION DR. DE LA TORRE HAD DISCONTINUED THE ALDACTONE. CHARGE NURSE VERIFIED WITH DR. LIAO IF HE WANTED THE ALDACTONE DISCONTINUED AND HE SAID YES. I DID NOT ADMINISTER THE ALDACTONE.
--- NOTE | 2023-05-30 16:00 | NUR ---
CIWA 0, PT SLEEPING.
[2023-05-30 16:25] VITALS: BP 120/64
--- NOTE | 2023-05-30 17:35 | NUR ---
SHIFT SUMMARY NO ACUTE CHANGES, SEE PREVIOUS NOTES. PT HAS BEEN SLEEPING THE MAJORITY OF THE DAY. PT ON 2L NC WHILE HE IS SLEEPING HIS OXYGEN SATURATION WOULD DROP INTO HIGH 80'S PERIODICALLY, MAINTAINING 02 SATURATION ABOVE 92% ON 2L NC. PTS HR 100'S, BP STABLE. BLEVINS CATHETER IN PLACE AND STILL DRAINING TEA COLORED URINE WITH GRAVITY. PT SLEEPING, CALL LIGHT WITHIN REACH.
[2023-05-30 20:30] VITALS: BP 111/63
[2023-05-30 23:17] VITALS: BP 99/72
[2023-05-31 03:13] VITALS: BP 106/73
[2023-05-31 05:05] LABS: Albumin, Blood 2.6 g/dL (3.4-5.0); Albumin/Globulin Ratio 0.8 (0.8-1.8); Bun/Creatinine Ratio 8.8 (12.0-20.0); Calcium, Blood 7.5 mg/dL (8.5-10.1); Creatinine, Blood 2.27 mg/dL (0.60-1.20); Globulin, Blood 3.1 g/dL (2.2-4.0); Magnesium, Blood 1.4 mg/dL (1.6-2.4); Potassium, Blood 3.5 mmol/L (3.5-5.5); Total Protein, Blood 5.7 g/dL (6.4-8.2)
[2023-05-31 05:33] LABS: Hematocrit 19.6 % (37.0-53.0); Hemoglobin 7.3 g/dL (13.5-17.5)
--- NOTE | 2023-05-31 06:25 | NUR ---
shift summary this rn assumed care at 1900. vital signs stable and have remained stable throughout the shift. tele st 100. patient is alert and oriented x4. perrla. ciwa 0-9. patient reports no pain, chest pain/pressure, shortness of breath. see shift assessment for further detials. patient has repositioned self indepdently throughout the night. patient has dumas in place for retention and is draining with gravity, dark tea colored urine. no acute changes. plan of care remains up to date. call light within reach, bed alarm on, and bed in lowest position.
--- NOTE | 2023-05-31 07:30 | NUR ---
ASSUMED CARE: PT RESTING IN BED AT THIS TIME. EVEN RESPIRATIONS, NO ACUTE DISTRESS, OPENS EYES AND FOLLOWS COMMANDS WHEN STAFF GIVES DIRECTIONS. NO ACUTE NEEDS AT THIS TIME.
[2023-05-31 08:07] VITALS: BP 117/70
--- NOTE | 2023-05-31 09:00 | NUR ---
DVT PROPHYLAXIS: DR DE LA TORRE DECLINES DVT PROPHYLAXIS ORDERS AT THIS TIME DUE TO LIVER FUNCTION AND INR NUMBERS
--- NOTE | 2023-05-31 12:23 | NUR ---
PT TRANSFERRED TO MEDICAL FLOOR VIA WHEELCHAIR. REPORT GIVEN TO ESME DEE. NO ACUTE NEEDS OR CONCERNS AT THIS TIME
[2023-05-31 15:34] VITALS: BP 118/77
--- NOTE | 2023-05-31 17:25 | NUR ---
SHIFT SUMMARY: ASSUMED CARE OF PATIENT AT 1600 WHEN PREVIOUS RN WENT HOME. A&O X 2-3, A BIT WITHDRAWN. SKIN IS WARM, JAUNDICED. NS INFUSING AT 75 ML/HR INTO NEW LAC IV. BLEVINS DRAINING TRANG URINE; 24 HOUR URINE COLLECTION IN PROGRESS. CIWA SCORE 7. DENIES PAIN. BED ALARM ON, CALL LIGHT AND BELONGINGS IN REACH.
[2023-05-31 20:56] VITALS: BP 125/75
--- NOTE | 2023-05-31 23:32 | NUR ---
REPORT RECEIVED. PT LOOKS TO BE STATING TO ACTIVILY DETOX, SO I MEDICATED PER MAR. PT IS VERY SLOW TO REPOND AND IS NOT IN A VERY GOOD MOOD. SEEMS UNINTERESTED AT ALL OF THE SITUATION HE IS IN. BLEVINS IS STILL IN PLACE AND PT HASNT PULLED AT IVS YET. WILL CONT TO MONITOR
--- NOTE | 2023-05-31 23:34 | NUR ---
PT HIGHLY AGITATED ATTEMPTING TO GET OOB, WAS EASILY REDIRECTED AND STATED HE KNEW WHERE HE WAS AT. TREMULOUS, NAUSEOUS AND AGITATED. PT MEDICATED PER SEP AND MD DE LA TORRE NOTIFIED, REQUESTED I BE A BIT MORE AGRESSIVE WITH THE ATIVAN AND TO NOTIFY IF NOT WORKING.
[2023-06-01] VITALS (12 sets, daily range): BP systolic 118–137; BP diastolic 75–89
[2023-06-01 07:55] LABS: Hematocrit 21.9 % (37.0-53.0); Hemoglobin 7.9 g/dL (13.5-17.5)
--- NOTE | 2023-06-01 07:56 | NUR ---
CIWA 15. 77% ON RA. CONTINUES TO PULL NC OFF. SAT LOW 90S ON 4L NC MUMMBLING AND UNABLE TO DETERMINE ORIENTATION. DR. ELLIS NOTIFIED. ABG ORDERED
[2023-06-01 08:15] LABS: Albumin, Blood 3.2 g/dL (3.4-5.0); Bilirubin, Total 16.9 mg/dL (0.1-1.0); Bun/Creatinine Ratio 11.1 (12.0-20.0); Calcium, Blood 8.1 mg/dL (8.5-10.1); Creatinine, Blood 2.08 mg/dL (0.60-1.20); Globulin, Blood 3.1 g/dL (2.2-4.0); Magnesium, Blood 1.9 mg/dL (1.6-2.4); Phosphorus, Blood 2.3 mg/dL (2.5-4.9); Potassium, Blood 3.2 mmol/L (3.5-5.5); Total Protein, Blood 6.3 g/dL (6.4-8.2)
[2023-06-01 09:20] LABS: PCO2 Arterial 40.2 mmHg (35-45); PO2 Arterial 75.9 mmHg (80-100); pH Blood Arterial 7.48 (7.35-7.45)
--- NOTE | 2023-06-01 10:45 | NUR ---
ASSUMED CARE PATIENT ARRIVED FROM MEDICAL FLOOR VIA GURNEY WITH BLEONGINGS AND NO FAMILY AT BEDSIDE. PATIENT ON 4LPM VIA NC WITH SPO2 MID TO HIGH 90'S. PATIENT DOES NOT OPEN EYES, BUT MUMBLES IN RESPONSE TO STAFF. ATTEMPTS TO SIT UP IN BED AND NEEDS FREQUENT REDIRECTION TO KEEP NC AND OTHER LINES ON. REPORT RECEIVED FROM ESME TOBIN.
--- NOTE | 2023-06-01 11:01 | NUR ---
PT TRANSFER TO ICU. CIWA SCORE 15. PT PULLED OUT BLEVINS CATHETER AND IV. PT UNRESPONSIVE TO STIMULI BUT WILL MOAN AND MUMMBLE AT TIMES. RR 40
--- NOTE | 2023-06-01 12:20 | NUR ---
CIWA RECHECK ATTEMPTED TO RECHECK CIWA AFTER ADMNINISTERING ATIVAN 4MG IV. PATIENT WAS ASLEEP PRIOR TO REASSESSMENT. WHEN STIMULATED TO ANSWER QUESTIONS, PATIENT WOULD OPEN EYES AND LOOK AT THIS NURSE WHILE ATTEMPTING TO MUMBLE ANSWERS INTERMITTENTLY. UNABLE TO COMPLETE A FULL CIWA, BUT TREMORS AND SWEAT ARE IMPROVED FROM ORIGINAL CIWA SCORE.
--- NOTE | 2023-06-01 18:40 | NUR ---
SHIFT SUMMARY PATIENT HAD NO URINE OUT IN HIS ATTENDS SINCE ARRIVING TO ICU. BLADDER SCAN SHOWED 643ML, BUT 480ML DRAINED THROUGH STRAIGHT CATH. ATIVAN 4MG IV X1 ADMINISTERED ONCE, THEN SWTICHED TO PHENOBARBITAL. PHENOBARBITAL ADMINISTERED TWICE DURING SHIFT FOR CIWA GREATER THAN 8. MAX CIWA 12. PATIENT STILL MUMBLES WORDS BACK. A&O X 3. FOLLOWS COMMANDS BUT IS VERY WEAK. NO OTHER CHANGES THIS SHIFT.
--- NOTE | 2023-06-01 20:55 | NUR ---
PATIENT SLEEPING AWAKENS TO SLIGHT STIMULI. NOT ANSWERING QUESTIONS VERBALLY. AT TIMES SITTING UP IN BED, WHEN ASKED IF HE NEEDS TO GO TO THE BATHROOM SHAKING HEAD NO THEN LAYING BACK DOWN. ATTENDS IN PLACE. FOLLOWING SIMPLE DIRECTIONS. BIOX 90% ON RA. BIOX 95% ON 2L/NC. SKIN AND SCLERA JAUNDICED.
[2023-06-02] VITALS (12 sets, daily range): BP systolic 106–132; BP diastolic 70–92
[2023-06-02 04:00] LABS: BASOPHILS ABSOLUTE AUTO 0.06 K/mm3 (0.00-0.23); BASOPHILS PERCENT AUTO 0 % (0-2); EOSINOPHILS ABSOLUTE AUTO 0.16 K/mm3 (0.00-0.68); EOSINOPHILS PERCENT AUTO 1 % (0-6); Hemoglobin 8.2 g/dL (13.5-17.5); IMMATURE GRAN ABSOLUTE AUTO 0.25 K/mm3 (0.00-0.10); IMMATURE GRAN PERCENT AUTO 2 % (0-1); LYMPHOCYTES ABSOLUTE AUTO 1.77 K/mm3 (0.84-5.20); LYMPHOCYTES PERCENT AUTO 12 % (21-46); MONOCYTES ABSOLUTE AUTO 1.28 K/mm3 (0.16-1.47); MONOCYTES PERCENT AUTO 9 % (4-13); Mean Corpuscular HGB 44.3 pg (26.0-34.0); Mean Corpuscular HGB Conc 37.3 g/dL (31.5-36.5); Mean Corpuscular Volume 119 fL (80-100); Mean Platelet Volume 9.9 fL (9.1-12.4); NEUTROPHILS ABSOLUTE AUTO 10.87 K/mm3 (1.96-9.15); NEUTROPHILS PERCENT AUTO 76 % (41-73); NRBC ABSOLUTE 0.04 K/mm3 (0.00-0.02); NRBC Auto 0.3 /100 WBC (0.0-0.2); Platelet Count 94 K/mm3 (150-400); RDW Coefficient Variation 19.1 % (11.7-14.2); RDW Standard Deviation 82.4 fL (35.1-46.3); Red Blood Cell Count 1.85 M/mm3 (4.30-5.90); White Blood Cell Count 14.39 K/mm3 (4.00-11.30)
[2023-06-02 05:31] LABS: Albumin, Blood 2.8 g/dL (3.4-5.0); Anion Gap 4 mmol/L (6-16); Blood Urea Nitrogen 20 mg/dL (8-24); CO2, Blood 31 mmol/L (21-32); Calcium, Blood 7.9 mg/dL (8.5-10.1); Chloride, Blood 99 mmol/L (98-108); Creatinine, Blood 1.67 mg/dL (0.60-1.20); Glomerular Filtration Rate 57 (60-); Glucose, Blood 84 mg/dL (70-99); Magnesium, Blood 1.7 mg/dL (1.6-2.4); Phosphorus, Blood 2.5 mg/dL (2.5-4.9); Potassium, Blood 3.5 mmol/L (3.5-5.5); Sodium, Blood 134 mmol/L (136-145)
--- NOTE | 2023-06-02 06:34 | NUR ---
SUMMARY PATIENT SLEEPING OFF AND ON WHEN AWAKE BECOMING RESTLESS AND PULLING AT HEART MONITOR AND OXYGEN. TALKING VERY SOFT AT TIMES, MOSTLY JUST NODING YES AND NO. FOLLOWING SIMPLE DIRECTIONS. DOCTOR ELIZABETH IN TO SEE PATIENT THIS MORNING AND DUE TO NOT BEING ABLE TO TAKE PO DUE TO ASPIRATION RISK ORDER PLACED TO START CLINIMIX AND TO DC NS IV DRIP NOW. IN AND OUT CATH X1 DURING THE NIGHT, DRAINING DARK ORANGE/TRANG URINE.
--- NOTE | 2023-06-02 07:33 | NUR ---
ASSUMED CARE: PT RESTING IN BED AT THIS TIME. RESPIRATIONS EVEN, UNLABORED, ON 2L O2 VIA NC. NSR IN 90S ON TELE. CLINIMIX STARTED PER ORDERS BY DR JOHNSON. NO ACUTE NEEDS OR CONCERNS AT THIS TIME.
[2023-06-02 08:02] LABS: International Normalized Ratio 1.91; Prothrombin Time Results 19.3 Sec (9.7-11.5)
--- NOTE | 2023-06-02 11:50 | NUR ---
DR ELLIS CAME TO SEE PT. DISCUSSED DR SWAN'S RECOMMENDATIONS OF NO DIURETICS AND THAT ALL PO MEDS, INCLUDING SPIRANOLACTONE HAVE BEEN HELD. PT HAS NOT REQUIRED ANY WITHDRAWAL MEDS SINCE HOT DIPPER. PT RESTING QUIETLY, NO ACUTE NEEDS AT THIS TIME.
--- NOTE | 2023-06-02 18:21 | NUR ---
SHIFT SUMMARY: PT REMAINS NSR ON TELE, 3L VIA OR. GI CONSULTING. PT DID NOT REQUIRE MEDICATING WITH PHENOBARBITOL DUE TO SOMNOLENCE THIS SHIFT. WOULD OCCASIONALLY WAKE UP, SIT UP IN BED AND ASK FOR A DRINK OF WATER. NPO UNTIL MORE AWAKE. PT'S MOTHER CAME TO VISIT THIS SHIFT. NO ACUTE NEEDS OR CONCERNS AT THIS TIME.
[2023-06-03] VITALS (13 sets, daily range): BP systolic 97–129; BP diastolic 49–92
[2023-06-03 04:51] LABS: Hematocrit 21.5 % (37.0-53.0); Hemoglobin 7.7 g/dL (13.5-17.5); Mean Corpuscular HGB 44.3 pg (26.0-34.0); Mean Corpuscular HGB Conc 35.8 g/dL (31.5-36.5); NRBC ABSOLUTE 0.02 K/mm3 (0.00-0.02); NRBC Auto 0.2 /100 WBC (0.0-0.2); Platelet Count 89 K/mm3 (150-400); RDW Coefficient Variation 18.8 % (11.7-14.2); RDW Standard Deviation 83.4 fL (35.1-46.3); Red Blood Cell Count 1.74 M/mm3 (4.30-5.90); White Blood Cell Count 12.67 K/mm3 (4.00-11.30)
[2023-06-03 05:08] LABS: International Normalized Ratio 1.83; Prothrombin Time Results 18.6 Sec (9.7-11.5)
[2023-06-03 05:10] LABS: Albumin, Blood 2.4 g/dL (3.4-5.0); Anion Gap 4 mmol/L (6-16); Blood Urea Nitrogen 26 mg/dL (8-24); Bun/Creatinine Ratio 17.9 (12.0-20.0); CO2, Blood 32 mmol/L (21-32); Calcium, Blood 8.2 mg/dL (8.5-10.1); Chloride, Blood 104 mmol/L (98-108); Creatinine, Blood 1.45 mg/dL (0.60-1.20); Glomerular Filtration Rate 67 (60-); Glucose, Blood 102 mg/dL (70-99); Magnesium, Blood 2.1 mg/dL (1.6-2.4); Phosphorus, Blood 2.7 mg/dL (2.5-4.9); Potassium, Blood 3.4 mmol/L (3.5-5.5); Sodium, Blood 140 mmol/L (136-145)
[2023-06-03 05:14] LABS: Mean Corpuscular Volume 124 fL (80-100)
--- NOTE | 2023-06-03 05:49 | NUR ---
SHIFT SUMMERY PT HAS PERIODS OF AGITATION W/ CONFUSION AND DELIRIUM, MEDICATED PER EMAR. PT HAS DIFFICULT TO REDIRECT DUE TO AMS. HIS SPEECH IS LOW AND MUMBLED, DIFFICULT TO UNDERSTAND. HE HAS BEEN SR, BP WNL. PT HAS BEEN AFEBRILE. HE CAN [place] W/GERNALIZED WEAKNESS. HE HAS HAD NO ACUTE CHANGES OVERNIGHT. HE IS ON 3LNC, OXYGEN SAT >90%.
--- NOTE | 2023-06-03 12:12 | NUR ---
UPDATE PATIENT DENIES URGE TO URINATE. STRAIGHT CATH DRAINED 100ML DARK TRANG URINE OUT. CALL MADE TO DR. ELLIS TO UPDATE AND ORDER RECEIVED TO INCREASE CLINIMIX FROM 50ML/HR TO 75ML/HR. ATTEMPTED BEDSIDE SWALLOW EVAL, BUT PATIENT WAS UNABLE TO TOLERATE PO WATER INTAKE AND BEGAN COUGHING AND CHOKING ON WATER. UNABLE TO PASS SWALLOW TODAY. SPEECH THERAPY ORDER PLACED.
--- NOTE | 2023-06-03 17:40 | NUR ---
pt asked weakly and mumbling to talk with his mom on the phone. Called his mom and gave her the update on the pt's condition today, and progress per physicians. Pt was assisted with phone to talk with his mom.
--- NOTE | 2023-06-03 19:24 | NUR ---
BEDSIDE SHIFT REPORT GIVEN TO ESME COLLADO. THE [employer] REMOTE PATIENT MONITORING IS BEING SET UP IN ORDER TO PREVENT DISLODGEMENT OF IV, O2, TELEMETRY WIRES PT IS VERY SOMNULENT AND LESS AWARE OF HIS SURROUNDINGS THAN IF HE WERE FULLY ALERT. BED ALARM IS ALSO ON.
[2023-06-04 03:43] VITALS: BP 127/73
[2023-06-04 04:04] LABS: Hematocrit 21.5 % (37.0-53.0); Hemoglobin 7.5 g/dL (13.5-17.5); Mean Corpuscular HGB 44.1 pg (26.0-34.0); Mean Corpuscular HGB Conc 34.9 g/dL (31.5-36.5); Mean Corpuscular Volume 127 fL (80-100); Mean Platelet Volume 9.5 fL (9.1-12.4); Platelet Count 95 K/mm3 (150-400); RDW Coefficient Variation 18.1 % (11.7-14.2); RDW Standard Deviation 83.3 fL (35.1-46.3); White Blood Cell Count 11.41 K/mm3 (4.00-11.30)
[2023-06-04 04:21] LABS: Albumin, Blood 2.4 g/dL (3.4-5.0); Albumin/Globulin Ratio 0.7 (0.8-1.8); Bun/Creatinine Ratio 24.2 (12.0-20.0); Calcium, Blood 8.3 mg/dL (8.5-10.1); Creatinine, Blood 1.28 mg/dL (0.60-1.20); Globulin, Blood 3.3 g/dL (2.2-4.0); Magnesium, Blood 2.1 mg/dL (1.6-2.4); Phosphorus, Blood 2.9 mg/dL (2.5-4.9); Potassium, Blood 3.7 mmol/L (3.5-5.5); Total Protein, Blood 5.7 g/dL (6.4-8.2)
--- NOTE | 2023-06-04 06:25 | NUR ---
SHIFT SUMMARY PATIENT ALERT AND ORIENTED X3. HAS BEEN LETHARGIC BUT BECOMING MORE ALERT THE NIGHT HAS GONE ON. NPO PENDING SPEECH EVAL, CLINIMIX CURRENTLY INFUSING. PATIENT HAD NO COMPLAINTS OF PAIN OR SHORTNESS OF BREATH. ON [employer] CAMER[employer] FOR SAFETY PATIENT HAS BEEN PULLING AT LINES AND OCCASIONALLY TRYING TO GET UP. ON 2 LITERS O2 VIA NC. VITAL SIGNS STABLE. WILL CONTINUE TO MONITOR. CALL LIGHT WITHIN REACH.
[2023-06-04 07:31] VITALS: BP 121/67
[2023-06-04 11:36] VITALS: BP 123/82
[2023-06-04 15:11] VITALS: BP 144/86
--- NOTE | 2023-06-04 15:30 | NUR ---
[place] Swallow evaluation attempted. Pt was more awake this afternoon, and said that he could stay awake. Managed to take 50 cc of water, and have some conversation afterwards, but then had a coughing episode. He still falls asleep easily when no stimulation in room.
--- NOTE | 2023-06-04 17:20 | NUR ---
summary The pt has been sleeping most of the day, in between care. Has been asking for water/sprite occasionally. He was far too lethargic to attempt swallow eval this morning, but this afternoon was able to stay awake during the bedside swallow evaluation, but unfortunately was unable to pass successfully He is oriented to person and place, and the year. Slow, slurred mumbling speech at best difficult to understand. Jaundiced skin and yellow sclera. Poor dentition. Requiring oxygen at 2 l/mi particularly while sleeping, which is all the time when staff are not doing care. Lung sounds are clearer than yesterday, only faint inspiratory crackles noted in the bases, no wheezing. Abdomen is soft, tender in the middle upper area, hypoactive bowel tones. Small amount of dependent edema. Bed alarm is on, [employer] monitoring in progress. Weak spontaneous movements of all extremities.
[2023-06-04 20:46] VITALS: BP 118/72
[2023-06-05 00:10] VITALS: BP 128/69
[2023-06-05 03:34] VITALS: BP 127/76
[2023-06-05 03:54] LABS: Hematocrit 20.9 % (37.0-53.0); Hemoglobin 7.2 g/dL (13.5-17.5); Mean Corpuscular HGB 43.9 pg (26.0-34.0); Mean Corpuscular HGB Conc 34.4 g/dL (31.5-36.5); Mean Corpuscular Volume 127 fL (80-100); Mean Platelet Volume 9.5 fL (9.1-12.4); Platelet Count 89 K/mm3 (150-400); RDW Coefficient Variation 16.9 % (11.7-14.2); RDW Standard Deviation 78.8 fL (35.1-46.3); Red Blood Cell Count 1.64 M/mm3 (4.30-5.90); White Blood Cell Count 9.58 K/mm3 (4.00-11.30)
[2023-06-05 04:07] LABS: International Normalized Ratio 1.64; Prothrombin Time Results 16.7 Sec (9.7-11.5)
[2023-06-05 04:16] LABS: Albumin, Blood 2.3 g/dL (3.4-5.0); Albumin/Globulin Ratio 0.7 (0.8-1.8); Bilirubin, Total 10.8 mg/dL (0.1-1.0); Bun/Creatinine Ratio 28.3 (12.0-20.0); Calcium, Blood 8.7 mg/dL (8.5-10.1); Creatinine, Blood 1.13 mg/dL (0.60-1.20); Globulin, Blood 3.4 g/dL (2.2-4.0); Magnesium, Blood 2.2 mg/dL (1.6-2.4); Total Protein, Blood 5.7 g/dL (6.4-8.2)
--- NOTE | 2023-06-05 06:44 | NUR ---
SHIFT SUMMARY PATIENT ALERT AND ORIENTED X2-3. HAD NO COMPLAINTS OF PAIN OR SHORTNESS OF BREATH. CONTINUES ON 2 LITERS PATIENT DESATS WHEN SLEEPING. VITAL SIGNS STABLE. [employer] CAMERA REMAINS IN PLACE TO HELP PROTECT LINES. VERBAL ORDERS RECEIVED FROM DR JOHNSON FOR A STAT BLOOD SODIUM LEVEL TO BE CHECKED AT 1000 AND FOR HIM TO BE NOTIFIED BY 1100 AND TO TURN THE CLINIMIX DOWN TO 50 ML/HR. WILL CONTINUE TO MONITOR CALL LIGHT WITHIN REACH.
--- NOTE | 2023-06-05 07:37 | NUR ---
bedside report from ESME Arreguin. The pt is more awake this morning, asking for soda. Speech is still mumbled and poorly dictated, but a little bit easier to understand than he was yesterday. He is keeping his eyes open. Amrita is in the room, and we spoke with the remote sitter to inform of shift change of staff.
[2023-06-05 08:12] VITALS: BP 122/83
--- NOTE | 2023-06-05 08:19 | NUR ---
Pt is awake, confused, but following directions and calm and cooperative. He is requesting "soda". [place] swallow evaluation attempted, but pt did not pass. He coughed a lot without finishing the intial 4 oz of water. Cough was strong and productive, brown phlegm. I explained to him that his swallow must be weak, and will get a therapist to see him today for the swallow. He is asking for mountain dew.
[2023-06-05 11:39] VITALS: BP 111/89
--- NOTE | 2023-06-05 14:50 | NUR ---
Pt is sitting up in bed, mumbling in conversation. He is calm, appears very alert, but his speech is so mumbled and slurry that it is hard to understand unless he is directed to enunciate more. He was able to recall the phone number of his girlfriend but needed help in dialing it. Spo2 94-95%on room air at this time.
[2023-06-05 14:54] VITALS: BP 123/90
--- NOTE | 2023-06-05 15:04 | NUR ---
Pt is asking about dinner. Said that he missed dinner last time. He is having small bites of applesauce at this time, and doing very well with it, while sitting upright with RN supervision. He is able to feed himself. SpO2 maintaining on room air at 91-92 %.
--- NOTE | 2023-06-05 15:30 | NUR ---
Pt assisted with oral care. He was given incentive spirometer and a flutter valve and instructed on their use. Used both of them with good strength. Small amount of dry coughing afterwards, non productive. He is sitting up in bed.
--- NOTE | 2023-06-05 16:37 | NUR ---
pt is using the incentive spirometer and flutter valve again. spo2 100% on room air.
--- NOTE | 2023-06-05 17:54 | NUR ---
Attempted OOB by himself. Alerted by bed alarm, Amrita started alarming afterwards.
[2023-06-05 20:48] VITALS: BP 122/77
[2023-06-06 05:03] VITALS: BP 129/89
[2023-06-06 05:20] LABS: Hemoglobin 7.4 g/dL (13.5-17.5)
[2023-06-06 05:49] LABS: Albumin, Blood 2.4 g/dL (3.4-5.0); Anion Gap 3 mmol/L (6-16); Blood Urea Nitrogen 31 mg/dL (8-24); Bun/Creatinine Ratio 28.4 (12.0-20.0); CO2, Blood 30 mmol/L (21-32); Calcium, Blood 8.6 mg/dL (8.5-10.1); Chloride, Blood 112 mmol/L (98-108); Creatinine, Blood 1.09 mg/dL (0.60-1.20); Glomerular Filtration Rate 95 (60-); Glucose, Blood 99 mg/dL (70-99); Magnesium, Blood 2.1 mg/dL (1.6-2.4); Phosphorus, Blood 3.5 mg/dL (2.5-4.9); Potassium, Blood 4.1 mmol/L (3.5-5.5); Sodium, Blood 145 mmol/L (136-145)
--- NOTE | 2023-06-06 06:22 | NUR ---
SHIFT SUMMARY PATIENT ALERT AND ORIENTED X 2-3. HAD NO COMPLAINTS OF PAIN OR SHORTNESS OF BREATH. WAS ABLE TO HAVE A BOWEL MOVEMENT THIS MORNING. ON ROOM AIR WITH SPO2 >90%. MENTATION IMPROVING WITH SPEECH BECOMING EASIER TO UNDERSTAND. VITAL SIGNS STABLE. NO ACUTE ISSUES NOTED OVERNIGHT. WILL CONTINUE TO MONITOR. CALL LIGHT WITHIN REACH.
[2023-06-06 07:26] VITALS: BP 136/79
--- NOTE | 2023-06-06 09:30 | NUR ---
UPDATE AFTER SPEECH THERAPY WORKED WITH PT, THIS RN FED PT YOGURT. PT TOLERATED WELL. PT REQUESTED WATER AND SMALL SIP WAS TAKEN AND PT STARTED COUGHING AND DESATURATING. PT SUCTIONED AND O2 VIA NC PROVIDED. PT TOOK SEVERAL MINUTES TO RECOVER. LS WHEEZES THROUGHOUT. DR. RICHARDSON NOTIFIED. WILL CONTINUE TO MONITOR CLOSELY
--- NOTE | 2023-06-06 13:58 | NUR ---
UPDATE PT MORE ALERT THAN THIS AM. PT ANSWERING QUESTIONS AND HOLDING A CONVERSATION. BREATHING HAS IMPROVED SINCE EPISODE THIS AM. PT ON RA WITH SATS >90%. BREATHING IS EVEN AND ULABORED. PT DENIES ANY PAIN. REPORT GIVEN TO MEDICAL FLOOR RN TO ASSUME CARE. WILL TRANSFER PT.
[2023-06-06 14:39] VITALS: BP 128/86
--- NOTE | 2023-06-06 16:33 | NUR ---
TRANSFERED FROM PCU. PT IS ALERT AND ORIENTED X3. PRODUCTIVE COUGH. PER, RN PT ASPIRATED ON THIN LIQUID THIS MORNING CAUSING COUGH. PT STATED THAT HE ASPIRATED BECAUSE HE DRANK IT SO FAST DUE TO BEING SO THRISTY. PT HAS BEEN ABLE TO DRINK WATER WITH NO ISSUE THIS EVENING. SUCTION SET UP AT BEDSIDE PRECAUTION. PER REPORT PT IS IMPULSIVE. REMOTE VIDEO MONITORING IN PROGRESS, BED IS IN THE LOWEST POSITION WITH BED ALARM ON AND CALL LIGHT IN REACH. PT IS ABLE TO MAKE NEEDS KNOWN.
[2023-06-06 16:38] VITALS: BP 136/82
[2023-06-06 21:15] VITALS: BP 120/82
--- NOTE | 2023-06-07 04:40 | NUR ---
SHIFT SUMMARY A/OX3. ROOM AIR. MUMBLED SPEECH. DYSPHAGIA PRECAUTIONS. TOLERATING LIQUIDS WELL AFTER EDUCATING TO TAKE SMALL SIPS AND SITTING UPRIGHT WITH INTAKE. PT CAN BE IMPULSIVE, VIDEO MONITORING IN PROGRESS. HAS NOT ATTEMPTED TO GET UP OUT OF BED THIS SHIFT. USES URINAL IN BED. ABLE TO REPOSITION INDEPENDENTLY IN BED. DENIES PAIN,CP,SOB. HOB ELEVATED CANNOT TOLERATE BEING FLAT. ABDOMEN DISTENDED. SKIN JAUNDICED. URINE TEA COLORED. CALL LIGHT IN REACH, BED LOCKED IN LOW POSITION
[2023-06-07 05:21] VITALS: BP 118/77
[2023-06-07 06:25] LABS: Hematocrit 20.3 % (37.0-53.0); Hemoglobin 6.9 g/dL (13.5-17.5)
[2023-06-07 06:47] LABS: Albumin, Blood 2.2 g/dL (3.4-5.0); Anion Gap 4 mmol/L (6-16); Blood Urea Nitrogen 23 mg/dL (8-24); Bun/Creatinine Ratio 20.7 (12.0-20.0); CO2, Blood 28 mmol/L (21-32); Calcium, Blood 8.1 mg/dL (8.5-10.1); Chloride, Blood 105 mmol/L (98-108); Creatinine, Blood 1.11 mg/dL (0.60-1.20); Glomerular Filtration Rate 93 (60-); Glucose, Blood 89 mg/dL (70-99); Magnesium, Blood 1.5 mg/dL (1.6-2.4); Phosphorus, Blood 3.3 mg/dL (2.5-4.9); Potassium, Blood 4.2 mmol/L (3.5-5.5); Sodium, Blood 137 mmol/L (136-145)
[2023-06-07 07:09] VITALS: BP 106/76
--- NOTE | 2023-06-07 07:17 | NUR ---
PATIENTS OXYGEN SATURATION WAS 90% ON ROOM AIR UPON WAKING UP. PROMPTED PATIENT TO TAKE A COUPLE OF DEEP BREATHS AND HE CAME UP TO 93%. BUT SINCE PATIENT HAS BEEN DROWSY AND LIKELY WILL GO BACK TO SLEEP AFTER LEAVING ROOM, PLACED PATIENT ON 1L NC AND HE IS SATTING 95-96%.
--- NOTE | 2023-06-07 07:26 | NUR ---
PER DR. JOHNSON, D/C D5NS AND ORDER 1G IV MAG.
--- NOTE | 2023-06-07 13:13 | NUR ---
CONCERNED THAT PT RETAINING URINE, BLADDER SCAN SHOWED >800ML. ABDOMEN ALSO DISTENDEND AND FIRM. BLADDER FIRM WELL. UNSURE IF FLUID IS IN BLADDER OR ABDOMEN, STRAIGHT CATH, 50ML OUTPUT. DR. RUBIO AT PT BEDSIDE.
[2023-06-07 15:20] VITALS: BP 122/80
--- NOTE | 2023-06-07 19:51 | NUR ---
PT IS ALERT AND ORIENTED X4. RN HAD CONCERN FOR POSSIBLE URINE RETENTION. BLADDER SCAN >800ML FLUID. UNSURE IF IT WAS FLUID IN BLADDER OR IN ABDOMEN. STRAIGHT CATH WITH 50ML OUTPUT. ABDOMEN DISTENDED AND FIRM. PER DR. RUBIO, PLAN FOR PARACENTESIS TOMORROW. JAUNDICED EYES AND SKIN. URINE IS DARK [place] COLOR. PO INTAKE HAS IMPROVED. COUGH HAS IMPROVED. HE IS DROWSY AND SHAKY. HE EXPRESSES DESIRE TO STOP DRINKING ALCOHOL, [facility] WOULD BE HELPFUL TO SUPPORT PT NEEDS AFTER DISCHARGE. SBA WITH FWW. ABLE OT MAKE NEEDS KNOWN. VIDEO MONITORING CONTINUES. PT DID NOT TRY TO GET OUT OF BED WITHOUT CALLING THIS SHIFT. BED IS IN THE LOWEST POSITION WITH BED ALARM ON AND CALL LIGHT IN REACH. PT R/A.
[2023-06-07 20:39] VITALS: BP 121/87
[2023-06-08 03:54] VITALS: BP 113/81
[2023-06-08 06:29] LABS: BASOPHILS ABSOLUTE AUTO 0.09 K/mm3 (0.00-0.23); BASOPHILS PERCENT AUTO 1 % (0-2); EOSINOPHILS ABSOLUTE AUTO 0.03 K/mm3 (0.00-0.68); EOSINOPHILS PERCENT AUTO 0 % (0-6); Hematocrit 20.8 % (37.0-53.0); Hemoglobin 7.1 g/dL (13.5-17.5); IMMATURE GRAN PERCENT AUTO 1 % (0-1); LYMPHOCYTES ABSOLUTE AUTO 2.46 K/mm3 (0.84-5.20); LYMPHOCYTES PERCENT AUTO 23 % (21-46); MONOCYTES ABSOLUTE AUTO 1.17 K/mm3 (0.16-1.47); MONOCYTES PERCENT AUTO 11 % (4-13); Mean Corpuscular HGB 43.3 pg (26.0-34.0); Mean Corpuscular HGB Conc 34.1 g/dL (31.5-36.5); Mean Corpuscular Volume 127 fL (80-100); Mean Platelet Volume 10.4 fL (9.1-12.4); NEUTROPHILS ABSOLUTE AUTO 6.82 K/mm3 (1.96-9.15); NEUTROPHILS PERCENT AUTO 64 % (41-73); Platelet Count 89 K/mm3 (150-400); RDW Coefficient Variation 14.6 % (11.7-14.2); RDW Standard Deviation 68.4 fL (35.1-46.3); Red Blood Cell Count 1.64 M/mm3 (4.30-5.90); White Blood Cell Count 10.67 K/mm3 (4.00-11.30)
--- NOTE | 2023-06-08 06:47 | NUR ---
SHIFT SUMMARY A/OX3. ROOM AIR AT START OF SHIFT. THIS MORNING UPON WAKING PATIENT FOR VITALS OXYGEN SATURATION WAS BETWEEN 89-90%. ASKED PATIENT TO TAKE A COUPLE DEEP BREATHS AND HE CAME UP TO 91%. PLACED PATIENT ON 1L NC HE IS DROWSY AND WILL GO BACK TO SLEEP. TIGHT, SHALLOW BREATHS. PATIENT STATES SLIGHTLY SOB AT REST. CONTINENT B/B. URINE TEA COLORED. DR. JOHNSON FOLLOWING TOLD ME TO PASS ALONG TO DAY SHIFT IF PT CONTINUES OR HAS INCREASED SOB TO NOTIFY HIM AND HE WILL GIVE 1X DOSE OF LASIX. NO ORDERS GIVEN AT THIS TIME. PATIENT TOLERATING THIN LIQUIDS AND ORAL INTAKE IS INCREASING. TOLERATED PUREED DIET. BILATERAL EDEMEA LE. MODERATE ABDOMINAL DISTENTION. ABLE TO MAKE NEEDS KNOWN, CALL LIGHT IN REACH. VIDEO MONITORING DUE TO IMPULSIVITY. BED LOCKED IN LOW POSITION.
[2023-06-08 06:48] LABS: International Normalized Ratio 1.66; Prothrombin Time Results 16.9 Sec (9.7-11.5)
[2023-06-08 06:49] LABS: Alanine Aminotransfer (ALT/SGP 34 U/L (12-78); Albumin, Blood 2.2 g/dL (3.4-5.0); Albumin/Globulin Ratio 0.6 (0.8-1.8); Alk Phos 80 U/L (50-136); Anion Gap 4 mmol/L (6-16); Aspartate Aminotrans (AST/SGOT 91 U/L (12-37); Bilirubin, Total 7.4 mg/dL (0.1-1.0); Blood Urea Nitrogen 17 mg/dL (8-24); Bun/Creatinine Ratio 14.9 (12.0-20.0); CO2, Blood 29 mmol/L (21-32); Chloride, Blood 104 mmol/L (98-108); Creatinine, Blood 1.14 mg/dL (0.60-1.20); Globulin, Blood 3.7 g/dL (2.2-4.0); Glomerular Filtration Rate 90 (60-); Glucose, Blood 91 mg/dL (70-99); Magnesium, Blood 1.8 mg/dL (1.6-2.4); Potassium, Blood 4.3 mmol/L (3.5-5.5); Sodium, Blood 137 mmol/L (136-145); Total Protein, Blood 5.9 g/dL (6.4-8.2)
[2023-06-08 07:42] VITALS: BP 114/80
[2023-06-08 16:37] VITALS: BP 128/89
--- NOTE | 2023-06-08 16:56 | NUR ---
SHIFT SUMMARY PT UPGRADED TO [facility] SOFT DIET AND MEDS WHOLE IN APPLESAUCE AFTER WORKING WITH ST TODAY. PT AMBULATING THE HALLWAY WITH PHYSICAL THERAPY THIS AFTERNOON. 1P ASSIST TO THE BATHROOM WITH GA[employer]ELT [employer] WALKER. PLAN FOR PARACENTESIS IN THE MORNING. PT GIVEN REHAB RESOURCES AFTER SPEAKING WITH DC PLANNING. NO OTHER ACUTE CHAGNES IN ASSESSMENT AT THIS TIME. VS REVIEWED. CALL LIGHT IN REACH. DENIES OTHER NEEDS AT THIS TIME.
[2023-06-08 20:02] VITALS: BP 112/79
[2023-06-09 01:50] VITALS: BP 115/80
[2023-06-09 06:41] LABS: BASOPHILS ABSOLUTE AUTO 0.11 K/mm3 (0.00-0.23); BASOPHILS PERCENT AUTO 1 % (0-2); EOSINOPHILS PERCENT AUTO 1 % (0-6); Hematocrit 21.3 % (37.0-53.0); Hemoglobin 7.2 g/dL (13.5-17.5); IMMATURE GRAN ABSOLUTE AUTO 0.12 K/mm3 (0.00-0.10); IMMATURE GRAN PERCENT AUTO 1 % (0-1); LYMPHOCYTES ABSOLUTE AUTO 2.21 K/mm3 (0.84-5.20); LYMPHOCYTES PERCENT AUTO 20 % (21-46); MONOCYTES ABSOLUTE AUTO 1.34 K/mm3 (0.16-1.47); MONOCYTES PERCENT AUTO 12 % (4-13); Mean Corpuscular HGB 42.6 pg (26.0-34.0); Mean Corpuscular HGB Conc 33.8 g/dL (31.5-36.5); Mean Corpuscular Volume 126 fL (80-100); Mean Platelet Volume 10.2 fL (9.1-12.4); NEUTROPHILS ABSOLUTE AUTO 7.42 K/mm3 (1.96-9.15); NEUTROPHILS PERCENT AUTO 66 % (41-73); Platelet Count 93 K/mm3 (150-400); RDW Coefficient Variation 13.9 % (11.7-14.2); RDW Standard Deviation 63.6 fL (35.1-46.3); Red Blood Cell Count 1.69 M/mm3 (4.30-5.90)
[2023-06-09 06:53] LABS: International Normalized Ratio 1.61; Prothrombin Time Results 16.5 Sec (9.7-11.5)
[2023-06-09 06:54] LABS: Albumin, Blood 2.1 g/dL (3.4-5.0); Anion Gap 4 mmol/L (6-16); Blood Urea Nitrogen 13 mg/dL (8-24); CO2, Blood 29 mmol/L (21-32); Calcium, Blood 7.9 mg/dL (8.5-10.1); Chloride, Blood 102 mmol/L (98-108); Creatinine, Blood 1.08 mg/dL (0.60-1.20); Glomerular Filtration Rate 96 (60-); Glucose, Blood 104 mg/dL (70-99); Magnesium, Blood 1.6 mg/dL (1.6-2.4); Potassium, Blood 4.1 mmol/L (3.5-5.5); Sodium, Blood 135 mmol/L (136-145)
--- NOTE | 2023-06-09 07:11 | NUR ---
SHIFT SUMMARY PT TRANSFERRED FROM SCU - PT ON VIRTUAL MONITOR, PT REQUESTED TO HAVE IT REMOVED, INFORMED PT THE WAY TO GET IT REMOVED IS TO NOT GET OUT BED- PT STATED UNDERSTANDING- PT SAT UP IN BED AND ACTIVATED THE VIRTUAL ALARM, PT NOTIFIED THIS RN THAT HE WASN'T TRYING TO GET OUT OF BED- ASSISTED PT WITH 2 STAFF AND GAIT BELT- PT WEAK BUT TOLERATED WELL- PT SLEPT T/O NIGHT, BED LOW POSITION, CALL LIGHT WITHIN REACH, BED ALARM IN PLACE
[2023-06-09 07:27] VITALS: BP 114/79
[2023-06-09 15:27] VITALS: BP 110/80
--- NOTE | 2023-06-09 18:24 | NUR ---
PT IS A/OX3, PLEASANT AND COOPERATIVE. THE PT IS UP WITH 1 PERSON ASSIST USEING THE FWW. THE PT AMBULATED OUT INTO THE [facility] TODAY WITH THE OCCUPATIONAL THERAPIST. THE PT HAD A PARACENTISIS THIS AM 2.5L REMOVED. THE PT TOLERATED THE PROCEDURE WELL. THE PT REMINED COOPERATIVE AND APPRORIATE T/O THE DAY. CALL LIGHT IN REACH. PT RESTING IN BED APPEARS TO BE COMFORTABLE
[2023-06-09 20:48] VITALS: BP 117/79
[2023-06-10 03:35] VITALS: BP 117/71
--- NOTE | 2023-06-10 04:43 | NUR ---
SHIFT SUMMARY KERMIT WAS DROWSY AND FULLY ORIENTED AT THE START OF THE SHIFT, AND IS COOPERATIVE. PT UNDERWENT PARACENTESIS YESTERDAY ON DAY SHIFT AND CLAIMS THAT HE FEELS MUCH BETTER AFTER. NO ACUTE EVENTS TONIGHT. PT DESATS TO 80'S% WHILE SLEEPING ON RA, PLACED PT ON 1L VIA NC, O2 HOLDING STEADY ABOVE 90%. PT ABLE TO AMBULATE WITH STANDBY ASSISTANCE. PT CURRENTLY SLEEPING IN BED IN A LOW POSITION WITH THE CALL LIGHT IN REACH, BED ALARM PLACED, AND VIDEO MONITORING IN PROGRESS.
[2023-06-10 07:12] LABS: BASOPHILS ABSOLUTE AUTO 0.08 K/mm3 (0.00-0.23); BASOPHILS PERCENT AUTO 1 % (0-2); EOSINOPHILS ABSOLUTE AUTO 0.01 K/mm3 (0.00-0.68); EOSINOPHILS PERCENT AUTO 0 % (0-6); Hemoglobin 7.6 g/dL (13.5-17.5); IMMATURE GRAN PERCENT AUTO 1 % (0-1); LYMPHOCYTES ABSOLUTE AUTO 2.27 K/mm3 (0.84-5.20); LYMPHOCYTES PERCENT AUTO 19 % (21-46); MONOCYTES ABSOLUTE AUTO 1.31 K/mm3 (0.16-1.47); MONOCYTES PERCENT AUTO 11 % (4-13); Mean Corpuscular HGB 42.7 pg (26.0-34.0); Mean Corpuscular HGB Conc 34.5 g/dL (31.5-36.5); Mean Corpuscular Volume 124 fL (80-100); Mean Platelet Volume 10.2 fL (9.1-12.4); NEUTROPHILS ABSOLUTE AUTO 8.04 K/mm3 (1.96-9.15); NEUTROPHILS PERCENT AUTO 68 % (41-73); Platelet Count 108 K/mm3 (150-400); RDW Coefficient Variation 13.3 % (11.7-14.2); RDW Standard Deviation 59.7 fL (35.1-46.3); Red Blood Cell Count 1.78 M/mm3 (4.30-5.90); White Blood Cell Count 11.81 K/mm3 (4.00-11.30)
[2023-06-10 07:16] LABS: Magnesium, Blood 1.6 mg/dL (1.6-2.4)
[2023-06-10 07:17] LABS: Albumin/Globulin Ratio 0.5 (0.8-1.8); Bilirubin, Total 5.4 mg/dL (0.1-1.0); Bun/Creatinine Ratio 10.2 (12.0-20.0); Calcium, Blood 7.7 mg/dL (8.5-10.1); Creatinine, Blood 0.98 mg/dL (0.60-1.20); Globulin, Blood 3.7 g/dL (2.2-4.0); Phosphorus, Blood 3.1 mg/dL (2.5-4.9); Potassium, Blood 3.6 mmol/L (3.5-5.5); Total Protein, Blood 5.7 g/dL (6.4-8.2)
[2023-06-10 07:38] VITALS: BP 110/76
[2023-06-10] MEDS ORDERED: ALBU90OI INH (14:18)
[2023-06-10] MEDS ORDERED: FOLI1 PO (14:19)
[2023-06-10] MEDS ORDERED: ONDA4ODT MM (14:19)
[2023-06-10] MEDS ORDERED: PANT20 PO (14:19)
[2023-06-10] MEDS ORDERED: B-1100 M1 PO (14:20)
--- NOTE | 2023-06-10 17:09 | NUR ---
LATE ENTRY DISCHARGE PT DISCHARGE WITH HOME HEALTH. 1 L NC WITH AMBULATION. DISCHARGE INSTRUCTIONS DISCUSSED WITH PT. EMPHASIZED THE IMPORTANCE OF QUITING ALCOHOL USE AND KEEP FOLLOW UP APPOINTMENTS RECOMMENDED. PT WILL SEE DR. JOHNSON 06/17 AT 2 PM, PER DR. JOHNSON, HE WILL SET HIM UP WITH A PCP. RN CALLED DR. SWAN OFFICE. THEY WILL CALL PT WITH APPOINTMENT. NO QUESTIONS OR CONCERNS AT THIS TIME
== END 2023-06-10 16:11 | disposition home health service (06) | DRG 432 ==
LOC: ER 06:03 → PCU 10:59 → MEDS 10:59 → ERHOLD 10:59 → PCU 18:48 → MEDS 05-31 12:18 → ICUE 06-01 10:16 → PCU 06-03 15:45 → MEDS 06-06 14:35 → ENPENDDIS 06-10 15:12 → MEDS 06-10 16:11
PROVIDERS: Internal Medicine; Internal Medicine Nephrology; Student in an Organized Health Care Education/Training Program; ADMIT Internal Medicine
PROC: 0W9G3ZZ Drainage of Peritoneal Cavity, Percutaneous Approach (ICD-10-PCS; principal; 2023-05-29)
PROC: 4A033R1 Measurement of Arterial Saturation, Peripheral, Percutaneous Approach (ICD-10-PCS; 2023-06-01)
DX: K70.11 Alcoholic hepatitis with ascites (principal); G92.8 Other toxic encephalopathy; J96.01 Acute respiratory failure with hypoxia; K72.00 Acute and subacute hepatic failure without coma; N17.0 Acute kidney failure with tubular necrosis; E87.1 Hypo-osmolality and hyponatremia; F10.239 Alcohol dependence with withdrawal, unspecified; D68.9 Coagulation defect, unspecified; E87.0 Hyperosmolality and hypernatremia; F17.210 Nicotine dependence, cigarettes, uncomplicated; K70.31 Alcoholic cirrhosis of liver with ascites; N18.9 Chronic kidney disease, unspecified; E86.9 Volume depletion, unspecified; Y90.6 Blood alcohol level of 120-199 mg/100 ml; E87.6 Hypokalemia; E88.09 Other disorders of plasma-protein metabolism, not elsewhere classified; F10.229 Alcohol dependence with intoxication, unspecified; D69.6 Thrombocytopenia, unspecified; E83.42 Hypomagnesemia; E83.39 Other disorders of phosphorus metabolism; T50.915A Adverse effect of multiple unspecified drugs, medicaments and biological substances, initial encounter; R13.10 Dysphagia, unspecified; K72.10 Chronic hepatic failure without coma; D63.8 Anemia in other chronic diseases classified elsewhere; D86.0 Sarcoidosis of lung; R53.81 Other malaise
CPT/HCPCS: 36415; 36600; 49083; 51701; 51702; 71045; 76770; 80048; 80053; 80069; 80076; 81001; 82140; 82530; 82533; 82803; 83690; 83735; 84100; 84132; 84145; 84157; 84295; 84300; 84443; 84550; 85014; 85018; 85025; 85027; 85610; 87070; 87075; 87086; 87205; 89051; 92526; 92610; 93005; 93010; 94640; 94760; 94761; 94762; 96374-59; 97110; 97112; 97116; 97116-CQ; 97162; 97166; 97530; 97535; 99285-25; A9270; C1751; C9113; J0696; J1940; J2060; J2354; J2405; J2560; J3010; J3475; J3480; J7030; J7042; J7050; J7060; J7070; J7131; P9047

== ENCOUNTER 2023-06-29 14:50 | Emergency (ER) | payer OTHER ==
[~2023-06-29] VITALS: Ht 180.3 cm; Wt 86.7 kg
[~2023-06-29 14:50] MED LIST changes: +ALBU90OI INH; +B-1100 M1 PO; +BUME1 PO; +FOLI1 PO; +ONDA4ODT MM; +PANT20 PO; +POTA10T PO; +SPIR25 PO
[2023-06-29 15:34] LABS: BASOPHILS ABSOLUTE AUTO 0.14 K/mm3 (0.00-0.23); BASOPHILS PERCENT AUTO 1 % (0-2); EOSINOPHILS ABSOLUTE AUTO 0.25 K/mm3 (0.00-0.68); EOSINOPHILS PERCENT AUTO 2 % (0-6); Hematocrit 30.6 % (37.0-53.0); IMMATURE GRAN ABSOLUTE AUTO 0.06 K/mm3 (0.00-0.10); IMMATURE GRAN PERCENT AUTO 1 % (0-1); LYMPHOCYTES PERCENT AUTO 19 % (21-46); MONOCYTES ABSOLUTE AUTO 1.18 K/mm3 (0.16-1.47); MONOCYTES PERCENT AUTO 10 % (4-13); Mean Corpuscular HGB 36.1 pg (26.0-34.0); Mean Corpuscular HGB Conc 32.7 g/dL (31.5-36.5); Mean Corpuscular Volume 111 fL (80-100); Mean Platelet Volume 9.2 fL (9.1-12.4); NEUTROPHILS ABSOLUTE AUTO 7.71 K/mm3 (1.96-9.15); NEUTROPHILS PERCENT AUTO 67 % (41-73); Platelet Count 214 K/mm3 (150-400); RDW Coefficient Variation 14.5 % (11.7-14.2); RDW Standard Deviation 58.4 fL (35.1-46.3); Red Blood Cell Count 2.77 M/mm3 (4.30-5.90); White Blood Cell Count 11.54 K/mm3 (4.00-11.30)
[2023-06-29 16:18] LABS: Albumin, Blood 2.6 g/dL (3.4-5.0); Albumin/Globulin Ratio 0.5 (0.8-1.8); Bilirubin, Total 3.7 mg/dL (0.1-1.0); Bun/Creatinine Ratio 8.3 (12.0-20.0); Calcium, Blood 8.5 mg/dL (8.5-10.1); Creatinine, Blood 0.85 mg/dL (0.60-1.20); Globulin, Blood 4.9 g/dL (2.2-4.0); Potassium, Blood 3.4 mmol/L (3.5-5.5); Total Protein, Blood 7.5 g/dL (6.4-8.2)
[2023-06-29 18:37] VITALS: BP 106/77
== END 2023-06-29 18:38 | disposition home or self-care (01) ==
LOC: ER 14:50
PROVIDERS: Student in an Organized Health Care Education/Training Program
DX: K70.31 Alcoholic cirrhosis of liver with ascites (principal); F10.139 Alcohol abuse with withdrawal, unspecified; F17.210 Nicotine dependence, cigarettes, uncomplicated; D64.9 Anemia, unspecified; Z79.899 Other long term (current) drug therapy
CPT/HCPCS: 80053; 85025; 99285-25

== ENCOUNTER 2023-06-30 01:59 | Emergency (ER) | payer OTHER ==
[~2023-06-30] VITALS: Ht 180.3 cm; Wt 90.7 kg
[2023-06-30 02:25] LABS: BASOPHILS ABSOLUTE AUTO 0.09 K/mm3 (0.00-0.23); BASOPHILS PERCENT AUTO 1 % (0-2); EOSINOPHILS ABSOLUTE AUTO 0.17 K/mm3 (0.00-0.68); EOSINOPHILS PERCENT AUTO 2 % (0-6); Hematocrit 26.6 % (37.0-53.0); Hemoglobin 8.7 g/dL (13.5-17.5); IMMATURE GRAN ABSOLUTE AUTO 0.03 K/mm3 (0.00-0.10); IMMATURE GRAN PERCENT AUTO 0 % (0-1); LYMPHOCYTES PERCENT AUTO 25 % (21-46); MONOCYTES ABSOLUTE AUTO 0.98 K/mm3 (0.16-1.47); MONOCYTES PERCENT AUTO 11 % (4-13); Mean Corpuscular HGB 36.3 pg (26.0-34.0); Mean Corpuscular HGB Conc 32.7 g/dL (31.5-36.5); Mean Corpuscular Volume 111 fL (80-100); Mean Platelet Volume 9.1 fL (9.1-12.4); NEUTROPHILS ABSOLUTE AUTO 5.35 K/mm3 (1.96-9.15); NEUTROPHILS PERCENT AUTO 61 % (41-73); Platelet Count 160 K/mm3 (150-400); RDW Coefficient Variation 14.6 % (11.7-14.2); RDW Standard Deviation 58.9 fL (35.1-46.3); White Blood Cell Count 8.82 K/mm3 (4.00-11.30)
[2023-06-30 02:37] LABS: Albumin, Blood 2.2 g/dL (3.4-5.0); Albumin/Globulin Ratio 0.5 (0.8-1.8); Bilirubin, Total 2.5 mg/dL (0.1-1.0); Bun/Creatinine Ratio 8.7 (12.0-20.0); Creatinine, Blood 0.92 mg/dL (0.60-1.20); Globulin, Blood 4.3 g/dL (2.2-4.0); Potassium, Blood 3.3 mmol/L (3.5-5.5); Total Protein, Blood 6.5 g/dL (6.4-8.2)
[2023-06-30 03:02] LABS: International Normalized Ratio 1.37; Prothrombin Time Results 14.1 Sec (9.7-11.5)
[2023-06-30 11:43] VITALS: BP 104/66
== END 2023-06-30 11:49 | disposition home or self-care (01) ==
LOC: ER 01:59
PROVIDERS: Emergency Medicine
DX: R18.8 Other ascites (principal); K74.60 Unspecified cirrhosis of liver; F17.210 Nicotine dependence, cigarettes, uncomplicated; Z99.81 Dependence on supplemental oxygen
CPT/HCPCS: 74177; 80053; 83690; 85025; 85610; 85730; 99285-25; Q9967

== ENCOUNTER 2023-06-30 12:55 | Emergency (ER) | payer OTHER ==
[~2023-06-30] VITALS: Ht 180.3 cm; Wt 90.7 kg
[2023-06-30 13:12] VITALS: BP 122/83
== END 2023-06-30 14:37 | disposition home or self-care (01) ==
LOC: ER 12:55
DX: R10.9 Unspecified abdominal pain (principal); K74.60 Unspecified cirrhosis of liver; F17.210 Nicotine dependence, cigarettes, uncomplicated; Z79.899 Other long term (current) drug therapy
CPT/HCPCS: 99283

== ENCOUNTER → 2023-08-17 | Outpatient (CLI) | payer OTHER ==
[2023-08-17 19:01] LABS: Albumin, Blood 3.7 g/dL (3.4-5.0); Albumin/Globulin Ratio 0.8 (0.8-1.8); Bun/Creatinine Ratio 13.7 (12.0-20.0); Calcium, Blood 9.7 mg/dL (8.5-10.1); Creatinine, Blood 0.73 mg/dL (0.60-1.20); Globulin, Blood 4.4 g/dL (2.2-4.0); Phosphorus, Blood 4.3 mg/dL (2.5-4.9); Potassium, Blood 3.9 mmol/L (3.5-5.5); Total Protein, Blood 8.1 g/dL (6.4-8.2)
== END | disposition home or self-care (01) ==
LOC: LAB EV 17:55 → LAB SHORT 17:55
PROVIDERS: Internal Medicine Hematology & Oncology
DX: K74.60 Unspecified cirrhosis of liver (principal)
CPT/HCPCS: 80053; 84100

== ENCOUNTER 2023-08-21 10:23 | Day surgery (SDC) | payer OTHER | END 2023-08-21 23:42 | disposition home or self-care (01) | LOC: US 10:23 | DX: K70.31 Alcoholic cirrhosis of liver with ascites (principal) | CPT/HCPCS: 76705 ==

== ENCOUNTER 2024-01-12 13:13 | Day surgery (SDC) | payer OTHER ==
[~2024-01-12] VITALS: Ht 180.3 cm; Wt 79.4 kg
[~2024-01-12 13:13] MED LIST changes: +Lactated Ringer's 1,000 ML IV ONE
[2024-01-12] MEDS ORDERED: Bumetanide2 MG (13:30)
[2024-01-12] MEDS ORDERED: propofoL 50 ML IV ONE (14:21)
[2024-01-12] MEDS ORDERED: Lactated Ringer's 1,000 ML IV ONE (14:25)
[2024-01-12] MEDS ORDERED: Lidocaine HCl 1% 30 ML SDV ONE (14:42)
[2024-01-12 15:31] VITALS: BP 114/77
== END 2024-01-12 15:27 | disposition home or self-care (01) ==
LOC: ORSCSDS 13:13
PROVIDERS: Specialist
PROC: 0DB68ZX Excision of Stomach, Via Natural or Artificial Opening Endoscopic, Diagnostic (ICD-10-PCS; principal; 2024-01-12 14:15)
DX: K70.30 Alcoholic cirrhosis of liver without ascites (principal); Z13.810 Encounter for screening for upper gastrointestinal disorder; Z79.899 Other long term (current) drug therapy; F17.210 Nicotine dependence, cigarettes, uncomplicated
CPT/HCPCS: 88305; J2704; J7120